=== PATIENT | female | born 1960 | race Caucasian/White ===

== ENCOUNTER → 2018-02-25 09:09 | Outpatient (CLI) | payer OTHER, SELFPAY ==
[2018-02-25 10:43] LABS: Alanine Aminotransferase 30 IU/L (9-52); Albumin Globulin Ratio 1.7 (1.0-2.8); Alkaline Phosphatase 65 U/L (38-126); Aspartate Aminotransferase 25 IU/L (14-36); BUN Creatinine Ratio 21.4 (6-22); Bilirubin Total 0.4 mg/dL (0.2-1.3); Blood Urea Nitrogen 15 mg/dL (7-17); Calcium 9.1 mg/dL (8.4-10.2); Carbon Dioxide 36 mmol/L (22-32); Chloride 101 mmol/L (98-107); Cholesterol 157 mg/dL (140-199); Estimated Glomerular Filt Rate > 60.0 mL/min (>60); Globulin 2.3 g/dL (1.7-4.1); Glucose 108 mg/dL (80-110); HDL Cholesterol 61 mg/dL (40-60); HEMOLYSIS < 15 (0-50); LDL Cholesterol Calculated 72 mg/dL (<100); Potassium 4.6 mmol/L (3.4-5.1); Sodium 143 mmol/L (137-145); Total Protein 6.3 g/dL (6.3-8.2); Triglycerides 119 mg/dL (35-150)
[2018-02-25 11:10] LABS: Thyroid Stimulating Hormone 4.14 uIU/mL (0.47-4.68)
[2018-03-01 15:13] LABS: Parathyroid Hormone Int 60 pg/mL (14-64)
== END ==
PROVIDERS: PCP Family Medicine; Visit Provider Physician Assistant
DX: E78.2 Mixed hyperlipidemia (principal); E03.9 Hypothyroidism, unspecified
CPT/HCPCS: 36415; 80053; 80061; 83970; 84443

== ENCOUNTER → 2018-04-05 14:06 | Outpatient (CLI) | payer OTHER, SELFPAY | PROVIDERS: PCP Physician Assistant; Visit Provider Internal Medicine Rheumatology | DX: M85.852 Other specified disorders of bone density and structure, left thigh (principal); Z78.0 Asymptomatic menopausal state; E07.9 Disorder of thyroid, unspecified; F17.200 Nicotine dependence, unspecified, uncomplicated; Z82.62 Family history of osteoporosis; Z90.722 Acquired absence of ovaries, bilateral | CPT/HCPCS: 77080 ==

== ENCOUNTER → 2018-04-07 12:55 | Outpatient (CLI) | payer OTHER, SELFPAY | PROVIDERS: PCP Physician Assistant; Visit Provider Physician Assistant | DX: R30.0 Dysuria (principal) | CPT/HCPCS: 87077; 87086; 87186 ==

== ENCOUNTER → 2018-05-25 12:58 | Outpatient (CLI) | payer OTHER, SELFPAY ==
[2018-05-25 13:01] LABS: Bacteria Urine None Seen; RBC Urine None Seen (0-5/HPF); WBC Urine None Seen (0-5/HPF)
[2018-05-25 13:37] LABS: Appearance Urine UA CLEAR; Bilirubin Urine UA NEGATIVE (NEGATIVE); Color Urine UA YELLOW; Glucose Urine UA NEGATIVE (Normal); Ketones Urine UA NEGATIVE (NEGATIVE); Leukocyte Esterase Urine UA TRACE (NEGATIVE); Nitrite Urine UA NEGATIVE (Negative); Occult Blood Urine UA TRACE-INTACT (Negative); Protein Urine UA NEGATIVE (Negative); Urobilinogen Urine UA 0.2 E.U./dL (0.2)
[2018-05-25 13:41] LABS: Amorphous Sediment Urine 1+; Culture Indicated Urine Cult Not Indicated
== END ==
PROVIDERS: PCP Physician Assistant; Visit Provider Physician Assistant
DX: N30.01 Acute cystitis with hematuria (principal)
CPT/HCPCS: 81001

== ENCOUNTER 2018-09-14 01:23 | Observation (INO) | payer OTHER, SELFPAY ==
[2018-09-14] VITALS (25 sets, daily range): BP systolic 83–150; BP diastolic 47–91; PULSE 85–130; RESP 12–24; TEMP 36.4–38.6; O2SAT 88–98; BMI 35.6
--- NOTE | 2018-09-14 01:42 | DI.RAD.S_ITS ---
PROCEDURE: XR CHEST 1V INDICATIONS: cough fever TECHNIQUE: One view of the chest was acquired. COMPARISON: None. FINDINGS: Surgical changes and devices: None. Lungs and pleura: Lungs are clear. No pleural effusions or pneumothorax. Mediastinum: Mediastinal contours appear normal. Heart size is normal. Bones and chest wall: No suspicious bony lesions. Overlying soft tissues appear unremarkable. IMPRESSION: No acute disease Dictated by: Nitin Sotomayor M.D. on 09/14/2018 at 7:53 Approved by: Nitin Sotomayor M.D. on 09/14/2018 at 7:54
[2018-09-14 01:45] LABS: Appearance Urine UA TURBID; Bilirubin Urine UA NEGATIVE (NEGATIVE); Color Urine UA Dark Yellow; Glucose Urine UA NEGATIVE (Negative); Ketones Urine UA TRACE (NEGATIVE); Leukocyte Esterase Urine UA 3+ (NEGATIVE); Nitrite Urine UA POSITIVE (Negative); Occult Blood Urine UA 3+ (Negative); Protein Urine UA 3+ (Negative); Urobilinogen Urine UA 0.2 E.U./dL (0.2); pH Urine UA 6.5 (4.5-8.0)
[2018-09-14 01:46] LABS: Bacteria Urine Many (>30); RBC Urine 30-100/HPF (0-5/HPF); Squamous Epithelial Cell Urine 0-1 /HPF; WBC Urine >100/HPF (0-5/HPF)
[2018-09-14 01:48] LABS: Culture Indicated Urine Specimen Cultured
--- NOTE | 2018-09-14 01:58 | ED_ITS ---
HPI - Fever General Chief Complaint: Fever Stated Complaint: HIGH FEVER Time Seen by Provider: 09/14/18 01:29 Source: patient Mode of arrival: ambulatory Limitations: no limitations History of Present Illness HPI Narrative: Patient is a 58-year-old female who presents with fever. she says today she had the shakes and just could not get warm today. She has had some urinary frequency and hematuria for the last 2 days. She has bilateral flank pain ongoing an remains unchanged. says she has known kidney stones and possibly bladder Stones as well. She denies any abdominal pain nausea vomiting. She is also a smoker and has had productive sputum of yellow ongoing for more than 1 month all. She denies any chest pain shortness of breath or heart palpitations. She says that she did take Bufferin, and Tylenol but nothing within the last 6 hr. She is currently afebrile. She says MD complaint: fever, malaise and weakness Onset (ago): day(s) (1) Associated symptoms: chills and rigors Related Data Home Medications Medication Instructions Recorded Confirmed oxycodone 15 mg PO Q6H #0 09/14/16 09/14/18 multivitamin [Multiple Vitamins] 1 tab PO QDAY #0 11/16/16 09/14/18 guaifenesin [Mucinex] 1,200 mg PO PRN PRN #0 01/27/17 09/14/18 prednisone 10 mg PO QDAY #0 01/27/17 09/14/18 tizanidine 4 mg tablet 4 mg PO .hs PRN tab 01/03/18 09/14/18 calcium carbonate [Calcium 600] 600 mg PO DAILY 09/14/18 09/14/18 cholecalciferol (vitamin D3) 400 unit PO DAILY 09/14/18 09/14/18 [Vitamin D3] coenzyme Q10 [Co Q-10] 300 mg PO DAILY 09/14/18 09/14/18 magnesium 400 mg PO DAILY 09/14/18 09/14/18 morphine 15 mg PO Q8H 09/14/18 09/14/18 Previous Rx's Medication Instructions Recorded escitalopram 20 mg tablet 20 mg PO QDAY #90 tab 02/24/18 ipratropium 20 mcg-albuterol 100 1 puff INHALATION QID #3 inh 08/17/18 mcg/actuation mist for inhalation levothyroxine 75 mcg tablet 75 mcg PO QDAY #90 tab 08/17/18 simvastatin 40 mg tablet 40 mg PO HS #90 tab 08/19/18 meloxicam 7.5 mg tablet 7.5 mg PO BID #180 tab 08/20/18 mirabegron ER 25 mg 25 mg PO HS #90 tab 08/20/18 tablet,extended release 24 hr Allergies Allergy/AdvReac Type Severity Reaction Status Date / Time epinephrine [EPINEPHRINE] Allergy Severe TROUBLE Verified 09/14/18 01:50 BREATHING - HAD ASTHMA A CHILD pregabalin [From [facility]] AdvReac Intermediate SOBBING & Verified 09/14/18 01:50 CONFUSION NOT A DRUG I EVER WANT TO TAKE AGAIN Review of Systems Review of Systems ROS Unobtainable: All systems reviewed & are unremarkable except as noted in HPI and below Constitutional Reports chills, Reports fever(s), Denies frequent falls, Denies headache(s) and Denies poor appetite Eyes Denies change in vision, Denies eye discharge, Denies irritation and Denies loss of vision ENT Ears, Nose, Mouth, and Throat: Denies headache(s) Cardiovascular Denies chest pain, Denies syncope, Reports rapid heart rate, Denies lightheadedness and Denies dyspnea Respiratory Denies change in phlegm color, Reports cough ( chronic), Denies excessive phlegm production, Denies dyspnea and Denies wheezing Gastrointestinal Gastrointestinal: Denies abdominal pain, Denies change in bowel habits, Denies diarrhea, Denies nausea and Denies vomiting Genitourinary Reports urinary urgency Musculoskeletal Denies back pain, Denies muscle weakness, Denies numbness and Denies tingling Integumentary/Breasts Denies pruritus, Denies erythema, Denies rash and Denies wounds Neurologic Denies confusion, Denies syncope, Denies frequent falls, Denies headache(s), Den ies loss of vision, Denies numbness and Denies tingling Psychiatric Denies anxiety, Denies confusion, Denies depression, Denies homicidal ideation and Denies suicidal ideation Allergic/Immunologic Denies wheezing [facility] Medical History Chronic back pain (Chronic 2001) Depression (Chronic Unknown) Fibromyalgia (Chronic 2013) Hyperlipemia (Chronic ~1994) Hypothyroidism (Chronic Unknown) Osteopenia (Chronic 2015) Rheumatoid arthritis (Chronic 01/2016) Urinary incontinence (Chronic 2013) Endometriosis (Resolved 1994) Surgical History Status post cholecystectomy Status post hysterectomy Status post laparoscopic supracervical hysterectomy Status post parathyroidectomy (09/02/16) Family History Grandmother Heart disease Mother Lung cancer Social History Smoking Status: Current every day smoker Tobacco: How many years used: 46 second hand exposure: No alcohol intake: former substance use type: does not use Family History Grandmother Heart disease Mother Lung cancer Social History household members: spouse Smoking Status: Current every day smoker Tobacco: How many years used: 46 second hand exposure: No alcohol intake: former substance use type: does not use Exam Initial Vital Signs Initial Vital Signs: Vital Signs Temperature 101.4 F H 09/14/18 01:25 Pulse Rate 130 H 09/14/18 01:25 Respiratory Rate 18 09/14/18 01:25 Blood Pressure 124/71 09/14/18 01:25 Pulse Oximetry 91 09/14/18 01:25 Const General: cooperative and healthy appearing Nutritional Appearance: average body habitus Orientation: alert, awake and oriented x3 HENMT Head: normal to inspection and normocephalic Face and sinus: normal facial exam Eyes General: appearance normal, both eyes and all related structures Neck Neck: normal visual inspection, full ROM and no meningeal signs Chest Chest: normal inspection of the chest and normal palpation of entire chest wall Resp Effort & Inspection: normal respiratory effort Auscultation: clear to auscultation bilaterally, no rales, no rhonchi and no wheezes Cardio Rate: tachycardic Rhythm: regular rhythm Heart Sounds: S1 normal and S2 normal GI Inspection: non-distended Palpation: soft, no hepatosplenomegaly, No guarding, No pulsatile mass and No tender Auscultation: normal bowel sounds Skin General: no rashes or lesions noted, No jaundice and No petechiae Neuro General: alert, oriented x3, gait normal and no focal motor deficits Speech: speech normal Scores qSOFA Altered Mental Status (GCS <15): No Respiratory rate greater than/equal to 22: No Systolic blood pressure less than or equal to 100: Yes qSOFA Total: 1 0-1 Not High Risk 1-3 High risk Course Orders Ordered: ED Orders 09/14/18 01:35 Urinalysis and Microscopic Stat Urine Culture Stat 09/14/18 01:42 XR chest 1V Stat 09/14/18 01:43 Influenza A and B by PCR Rapid Stat EKG-12 Lead Stat 09/14/18 02:05 Complete Blood Count AUTO DIFF Stat Comprehensive Metabolic Panel Stat Lactate (Lactic Acid) Stat Procalcitonin Stat 09/14/18 02:14 Blood Culture Stat 09/14/18 03:06 CT kidney ureter bladder (KUB) Stat 09/14/18 05:48 Education, smoking cessation ONGOING Acetaminophen (Tylenol) 650 mg PO Q6HR PRN PRN Reason: As Needed for Fever/Mild Pain Sodium Chloride (Normal Saline 0.9%) 1,000 mls @ 125 mls/hr IV CONT JEFFERSON Morphine Sulfate (Morphine) 2 mg IV Q4HR PRN PRN Reason: Pain, Severe (7-10) Last Admin: 09/14/18 05:54 Dose: 2 mg Ondansetron HCl (Zofran) 4 mg IV Q4HR PRN PRN Reason: Nausea And Vomiting Discontinued Medications Acetaminophen (Tylenol) 975 mg PO NOW ONE Stop: 09/14/18 01:43 Last Admin: 09/14/18 02:16 Dose: 975 mg Albuterol/Ipratropium (Duoneb) 3 ml INH NOW ONE Stop: 09/14/18 02:20 Last Admin: 09/14/18 02:27 Dose: 3 ml Sodium Chloride (Normal Saline 0.9%) 1,000 mls @ 1,000 mls/hr IV CONT JEFFERSON Last Infusion: 09/14/18 04:56 Dose: 0 mls/hr Infusion: 09/14/18 02:35 Dose: 400 mls/hr Admin: 09/14/18 02:16 Dose: 1,000 mls/hr Ceftriaxone Sodium/Dextrose (Rocephin) 1 gm in 50 mls @ 100 mls/hr IV NOW ONE Stop: 09/14/18 02:48 Last Admin: 09/14/18 02:36 Dose: Not Given Levofloxacin (Levaquin) 750 mg in 150 mls @ 100 mls/hr IV NOW ONE Stop: 09/14/18 03:50 Last Infusion: 09/14/18 04:27 Dose: 0 mls/hr Admin: 09/14/18 02:35 Dose: 100 mls/hr Sodium Chloride (Normal Saline 0.9%) 1,000 mls @ 1,000 mls/hr IV BOLUS ONE Stop: 09/14/18 03:49 Last Infusion: 09/14/18 04:57 Dose: 0 mls/hr Admin: 09/14/18 03:56 Dose: 1,000 mls/hr Sodium Chloride (Normal Saline 0.9%) 1,000 mls @ 1,000 mls/hr IV BOLUS ONE Stop: 09/14/18 06:13 Last Infusion: 09/14/18 05:25 Dose: 0 mls/hr Admin: 09/14/18 05:17 Dose: 1,000 mls/hr Influenza Virus Vaccine (Flu Vaccine) 0.5 ml IM .ONCE ONE Stop: 09/14/18 05:49 Ketorolac Tromethamine (Toradol) 30 mg IV NOW ONE Stop: 09/14/18 04:31 Last Admin: 09/14/18 04:31 Dose: 30 mg Nicotine (Nicoderm) 21 mg TOP NOW ONE Stop: 09/14/18 04:20 Last Admin: 09/14/18 04:52 Dose: 21 mg Ondansetron HCl (Zofran) 4 mg IV NOW ONE Stop: 09/14/18 04:14 Last Admin: 09/14/18 04:16 Dose: 4 mg Vital Signs - 8 hr 09/14/18 01:25 09/14/18 02:10 09/14/18 02:42 Temperature 101.4 F H Pulse Rate 130 H 117 H 111 H Respiratory Rate 18 20 19 Blood Pressure 124/71 Blood Pressure [Right Arm] 107/69 101/65 Pulse Oximetry 91 88 L 89 L 09/14/18 03:28 09/14/18 03:31 09/14/18 03:51 Temperature 100.2 F H Pulse Rate 108 H 102 H Respiratory Rate 16 16 Blood Pressure Blood Pressure [Right Arm] 102/60 83/58 L Pulse Oximetry 92 90 L 09/14/18 04:15 09/14/18 04:30 09/14/18 04:45 Temperature Pulse Rate 104 H 101 H Respiratory Rate 24 21 Blood Pressure Blood Pressure [Right Arm] 99/66 101/65 99/70 Pulse Oximetry 92 91 09/14/18 05:06 09/14/18 05:21 09/14/18 05:27 Temperature 98.4 F Pulse Rate 92 H 90 Respiratory Rate 14 12 Blood Pressure 99/75 Blood Pressure [Right Arm] 117/60 Pulse Oximetry 91 92 09/14/18 05:48 Temperature 98.8 F Pulse Rate 96 H Respiratory Rate 14 Blood Pressure 103/62 Blood Pressure [Right Arm] Pulse Oximetry 97 MDM - Fever Lab Data Attestation: I reviewed the patient's lab results. Result diagrams: 09/14/18 02:05 09/14/18 02:05 Lab Results 09/14/18 09/14/18 09/14/18 Range/Units 01:35 01:43 02:05 WBC 17.0 H (4.5-11.0) X10^3/uL RBC 5.04 (4.0-5.2) X10^6/uL Hgb 15.1 (12.0-16.0) g/dL Hct 45.2 (36-46) % MCV 89.7 (80-100) fL MCH 30.0 (26-34) PG MCHC 33.5 (30-36) % RDW 13.6 (11.6-14.8) % Plt Count 256 (150-400) X10^3/uL Neut % (Auto) 81.0 H (50-75) % Lymph % (Auto) 8.2 L (25-40) % [place] % (Auto) 10.0 (3-14) % Eos % (Auto) 0.4 L (2-4) % Baso % (Auto) 0.4 (0-2) % Neut # (Auto) 92587 H (5785-3631) /uL Lymph # (Auto) 1400 (4006-3073) /uL [place] # (Auto) 1700 H (0-900) /uL Eos # (Auto) 100 (0-450) /uL Baso # (Auto) 100 (0-100) /uL Sodium (137-145) mmol/L Potassium (3.4-5.1) mmol/L Chloride (98-107) mmol/L Carbon Dioxide (22-32) mmol/L BUN (7-17) mg/dL Creatinine (0.52-1.04) mg/dL Estimated GFR (>60) mL/min BUN/Creatinine Ratio (6-22) Glucose (80-110) mg/dL Lactate (0.7-2.1) mmol/L Calcium (8.4-10.2) mg/dL Total Bilirubin (0.2-1.3) mg/dL AST (14-36) IU/L ALT (9-52) IU/L Alkaline Phosphatase (38-126) U/L Total Protein (6.3-8.2) g/dL Albumin (3.5-5.0) g/dL Globulin (1.7-4.1) g/dL Albumin/Globulin Ratio (1.0-2.8) Procalcitonin (<0.5) ng/mL Urine Color Dark yellow Urine Appearance Turbid Urine pH 6.5 (4.5-8.0) Ur Specific [place] 1.010 (1.000-1.035) Urine Protein 3+ H (Negative) Urine Glucose (UA) Negative (Negative) g/dL Urine Ketones Trace H (NEGATIVE) Urine Occult Blood 3+ H (Negative) Urine Nitrate Positive H (Negative) Urine Bilirubin Negative (NEGATIVE) Urine Urobilinogen 0.2 (0.2) E.U./dL Ur Leukocyte Esterase 3+ H (NEGATIVE) Urine RBC 30-100/hpf H (0-5/HPF) Urine WBC >100/hpf H (0-5/HPF) Ur Squamous Epith Cells 0-1 /hpf Urine Bacteria Many (>30) H (None) Ur Culture Indicated? Specimen cultured Micro UA Comment . Influenza A & B (PCR) Negative (Negative) 09/14/18 09/14/18 09/14/18 Range/Units 02:05 02:05 02:05 WBC (4.5-11.0) X10^3/uL RBC (4.0-5.2) X10^6/uL Hgb (12.0-16.0) g/dL Hct (36-46) % MCV (80-100) fL MCH (26-34) PG MCHC (30-36) % RDW (11.6-14.8) % Plt Count (150-400) X10^3/uL Neut % (Auto) (50-75) % Lymph % (Auto) (25-40) % [place] % (Auto) (3-14) % Eos % (Auto) (2-4) % Baso % (Auto) (0-2) % Neut # (Auto) (4279-4893) /uL Lymph # (Auto) (6750-6739) /uL [place]ble # (Auto) (0-900) /uL Eos # (Auto) (0-450) /uL Baso # (Auto) (0-100) /uL Sodium 138 (137-145) mmol/L Potassium 3.5 (3.4-5.1) mmol/L Chloride 100 (98-107) mmol/L Carbon Dioxide 27 (22-32) mmol/L BUN 17 (7-17) mg/dL Creatinine 1.00 (0.52-1.04) mg/dL Estimated GFR 56.6 L (>60) mL/min BUN/Creatinine Ratio 17.0 (6-22) Glucose 140 H (80-110) mg/dL Lactate 1.4 (0.7-2.1) mmol/L Calcium 9.4 (8.4-10.2) mg/dL Total Bilirubin 0.5 (0.2-1.3) mg/dL AST 27 (14-36) IU/L ALT 38 (9-52) IU/L Alkaline Phosphatase 81 (38-126) U/L Total Protein 6.8 (6.3-8.2) g/dL Albumin 4.1 (3.5-5.0) g/dL Globulin 2.7 (1.7-4.1) g/dL Albumin/Globulin Ratio 1.5 (1.0-2.8) Procalcitonin 2.31 H (<0.5) ng/mL Urine Color Urine Appearance Urine pH (4.5-8.0) Ur Specific [place] (1.000-1.035) Urine Protein (Negative) Urine Glucose (UA) (Negative) g/dL Urine Ketones (NEGATIVE) Urine Occult Blood (Negative) Urine Nitrate (Negative) Urine Bilirubin (NEGATIVE) Urine Urobilinogen (0.2) E.U./dL Ur Leukocyte Esterase (NEGATIVE) Urine RBC (0-5/HPF) Urine WBC (0-5/HPF) Ur Squamous Epith Cells Urine Bacteria (None) Ur Culture Indicated? Micro UA Comment Influenza A & B (PCR) (Negative) Imaging Data CT scan - abdomen: Radiologist's impression: night shift manager report: Moderate left hydronephrosis is present. Multiple stones present in left ureter. There is a distal ureteral stone measuring 3 mm diameter approximately 3 cm above vesicoureteral junction. A 2 mm stone present in the ureter is immediately superior to this. There is a stone in the upper left ureter at the ureteropelvic junction, measuring 4 mm diameter. Additional small nonobstructing stones present within collecting systems of both kidneys. No obstructing stone is seen on the right. gastric lap band apparatus in place unremarkable. Chest x-ray: Attestation: I personally reviewed and interpreted this imaging study as follows: My impression: No acute cardiopulmonary process ECG Data Attestation: I personally reviewed and interpreted this ECG as follows: Prior ECG tracings: not available for review Interpretation: sinus tachycardia rate 119 year interval [address] changes or T-wave inversion MDM Narrative Medical decision making narrative: Patient's blood pressure was noted to decrease into the 80s. I went to evaluate patient she is complaining of right flank pain. She says the pain has gotten significantly worse more so than her regular pain. She states that she did take her home pain medications while in [facility] ED which included 15 mg of oxycodone and morphine sulfate. she states that she just took these medications Prior to me entering the room. Not sure that the medications have had a chance to be in effect, and her blood pressure is noted to be in the 80's. I discussed with patient that she should not be taking her own medications while in the ED unless given permission. blood pressure is rechecked multiple times and on different arms. Systolic does remain in the 80s and low 90s. Her heart rate has improved. She has only had 1 L of IV fluids. However suspect severe sepsis. Her lactic acid however is normal but she does have significant leukocytosis of 17 with UTI. She is also noted to have slightly low oxygen however she is a known smoker and not complaining of any shortness of breath or seeming to be in any significant respiratory distress. She is given deuneb which does seem to help. complaining of mostly right flank pain. [facility] closed [facility] [place] closed. [facility] boarding in ED but will put patient on list. Coordinator found a bed at [place]. Dr. Milton accepts patient, in patient. IV fluids. Discharge Plan Departure Patient Disposition: Admitted As Inpatient Clinical Impression: Pyelonephritis, Sepsis associated hypotension, Kidney stone on left side Discharge Date/Time: 09/14/18 05:27 Interventions: ED Discharge Assessment Last Done: 09/14/18 05:21 Admit Date/Time: 09/14/18 05:19 Admit Provider: Abundio Milton
[2018-09-14 02:11] LABS: Influenza A and B by PCR Rapid Negative (Negative)
[2018-09-14] MEDS: ACETAMINOPHEN 325 MG TABLET 975 MG PO (02:16)
[2018-09-14] MEDS: SODIUM CHLORIDE 0.9% 1,000 ML 1000 ML IV ×3 (02:16→05:17)
[2018-09-14 02:18] LABS: Add Manual Diff / Slide Review NO; Basophils Absolute Auto 100 /uL (0-100); Basophils Percent Auto 0.4 % (0-2); Eosinophils Absolute Auto 100 /uL (0-450); Eosinophils Percent Auto 0.4 % (2-4); Hematocrit 45.2 % (36-46); Hemoglobin 15.1 g/dL (12.0-16.0); Lymphocytes Absolute Auto 1400 /uL (1100-4500); Lymphocytes Percent Auto 8.2 % (25-40); Mean Corpuscular HGB Conc 33.5 % (30-36); Mean Corpuscular Volume 89.7 fL (80-100); Monocytes Absolute Auto 1700 /uL (0-900); Neutrophils Absolute Auto 13700 /uL (1500-7000); Platelet Count 256 X10^3/uL (150-400); Red Blood Cell Count 5.04 X10^6/uL (4.0-5.2); Red Cell Distribution Width 13.6 % (11.6-14.8)
[2018-09-14] MEDS: ALBUTEROL/IPRATROPIUM 3 ML AMPUL INH ×4 (02:27→21:12)
[2018-09-14 02:28] LABS: Alanine Aminotransferase 38 IU/L (9-52); Albumin 4.1 g/dL (3.5-5.0); Albumin Globulin Ratio 1.5 (1.0-2.8); Alkaline Phosphatase 81 U/L (38-126); Aspartate Aminotransferase 27 IU/L (14-36); Bilirubin Total 0.5 mg/dL (0.2-1.3); Blood Urea Nitrogen 17 mg/dL (7-17); Calcium 9.4 mg/dL (8.4-10.2); Carbon Dioxide 27 mmol/L (22-32); Chloride 100 mmol/L (98-107); Estimated Glomerular Filt Rate 56.6 mL/min (>60); Globulin 2.7 g/dL (1.7-4.1); Glucose 140 mg/dL (80-110); HEMOLYSIS < 15 (0-50); Potassium 3.5 mmol/L (3.4-5.1); Sodium 138 mmol/L (137-145); Total Protein 6.8 g/dL (6.3-8.2)
[2018-09-14 02:29] LABS: Lactate (Lactic Acid) 1.4 mmol/L (0.7-2.1)
[2018-09-14] MEDS: levoFLOXacin 750 MG/150 ML PIGGYBACK 100 MG IV (02:35)
[2018-09-14 02:45] LABS: Procalcitonin 2.31 ng/mL (<0.5)
--- NOTE | 2018-09-14 03:05 | PC.NURSE ---
Pt took own home pain medications, Dr. Lezama is aware.
--- NOTE | 2018-09-14 03:06 | DI.CT.S_ITS ---
PROCEDURE: CT KIDNEY URETER BLADDER (KUB) INDICATIONS: right flank pain TECHNIQUE: Noncontrast 5 mm thick sections acquired from the diaphragms to the symphysis. 5 mm thick coronal and sagittal reformats were then performed. For radiation dose reduction, the following was used: automated exposure control, adjustment of mA and/or kV according to patient size. COMPARISON: None. FINDINGS: Image quality: Excellent. Lung bases: Lung bases are clear. Heart size is normal. Urinary system: There is mild left perinephric stranding. Multiple bilateral renal calculi are seen measuring up to 2 mm on the left 1 mm the right. There is a 3 mm calculus in the proximal left ureter with associated mild ureterectasis, and mild left hydronephrosis. No other ureteral calculi seen. Bladder is partially collapsed. Mild asymmetric left renal enlargement Other solid organs: Liver is normal in size. Gallbladder surgically absent. Pancreas is normal in contours. Spleen is normal in size. No adrenal nodules. Peritoneum and bowel: Laparoscopic gastric banding. No free fluid or air. Colonic diverticulosis is seen without evidence of acute complication. No evidence of bowel obstruction. Rectum is grossly unremarkable Nodes and vessels: No retroperitoneal or mesenteric adenopathy by size criteria. Aorta and inferior vena cava are normal in caliber. Abdominal wall: No ventral hernias. Pelvis: No free pelvic fluid. No inguinal hernias or adenopathy. Bones: No suspicious bony lesions. No vertebral body compression fractures. Multilevel spondylosis IMPRESSION: Mildly to moderately obstructive 3 mm proximal left ureteral calculus. Adjacent perinephric stranding/inflammation. Additional bilateral sub-5 mm nephrolithiasis. Dictated by: Nitin oStomayor M.D. on 09/14/2018 at 7:45 Approved by: Nitin Sotomayor M.D. on 09/14/2018 at 7:50
[2018-09-14] MEDS: ONDANSETRON 4 MG/2 ML INJ IV (04:16)
[2018-09-14] MEDS: KETOROLAC 60 MG/2 ML VIAL 30 MG IV (04:31)
[2018-09-14] MEDS: NICOTINE 21 MG PATCH TOP (04:52)
[2018-09-14] MEDS: MORPHINE 2 MG/ML INJ IV (05:54)
[2018-09-14] MEDS: SODIUM CHLORIDE 0.9% 1,000 ML 125 ML IV ×3 (06:00→22:11)
--- NOTE | 2018-09-14 06:11 | PC.NURSE ---
Addendum entered by Kylie Draper R.N. 09/14/18 06:31: Dr. Milton called, Morphine order changed to 4mg q4h PRN Original Note: Patient arrived to unit at 0545 as AxOx3, VSS, tolerating room air. Patient very angry to give up her home meds to be locked away by coordinator. Patient states her pain is 10 out of 10 in her right flank area, after having received Toradol one hour earlier, along with apparently taking her own Oxycodone 15mg and Morphine 15mg in the ED. I gave her 2mg Morphine IVP and after 10 minutes patient has demanded stronger pain meds. Her 3rd fluid bolus is running right now. Telemetry on. Patient states her urine is bloody and malodorous but does not burn. Walks independently.
[2018-09-14] MEDS: MORPHINE 4 MG/ML INJ IV ×2 (06:38→09:41)
[2018-09-14] MEDS: ACETAMINOPHEN 325 MG TABLET 650 MG PO ×2 (07:47→19:35)
[2018-09-14] MEDS: ENOXAPARIN 40 MG/0.4 ML SYRINGE SUBCUT (09:52)
[2018-09-14] MEDS: LEVOTHYROXINE 75 MCG TABLET PO (09:52)
[2018-09-14] MEDS: ESCITALOPRAM 10 MG TABLET 20 MG PO (09:52)
[2018-09-14] MEDS: predniSONE 10 MG TABLET PO (09:52)
[2018-09-14] MEDS: HYDROMORPHONE 1 MG INJ IV ×2 (13:39→16:26)
[2018-09-14] MEDS: INFLUENZA VACCINE 0.5 ML SYRINGE IM (14:25)
[2018-09-14] MEDS: MORPHINE ER 15 MG TABLET PO ×2 (16:26→22:05)
[2018-09-14 17:56] LABS: Hematocrit 41.6 % (36-46); Hemoglobin 13.6 g/dL (12.0-16.0); Mean Corpuscular HGB Conc 32.6 % (30-36); Mean Corpuscular Hemoglobin 29.6 PG (26-34); Mean Corpuscular Volume 90.9 fL (80-100); Platelet Count 227 X10^3/uL (150-400); Red Blood Cell Count 4.58 X10^6/uL (4.0-5.2); Red Cell Distribution Width 13.8 % (11.6-14.8); White Blood Cell Count 18.5 X10^3/uL (4.5-11.0)
[2018-09-14 17:57] LABS: Add Manual Diff / Slide Review YES
[2018-09-14 18:11] LABS: Neutrophils Absolute Manual 17020 /uL (3000-5900); Total Cells Counted 100
[2018-09-14 18:12] LABS: Anisocytosis 1+
[2018-09-14 18:13] LABS: Blood Urea Nitrogen 18 mg/dL (7-17); Calcium 8.4 mg/dL (8.4-10.2); Carbon Dioxide 26 mmol/L (22-32); Chloride 106 mmol/L (98-107); Estimated Glomerular Filt Rate > 60.0 mL/min (>60); Glucose 124 mg/dL (80-110); HEMOLYSIS 27 (0-50); Sodium 139 mmol/L (137-145)
--- NOTE | 2018-09-14 18:30 | PM.HP.1 ---
History of Present Illness Date Patient Seen: 09/14/18 Chief complaint: HIGH FEVER Narrative: The patient is a 58-year-old female with a history of ureteral stones who was in her usual state of health until last weekend when she developed hematuria. A few days ago the patient fell like her skin was crawling. She noted having a fever. She had some associated nausea. Patient felt poorly. She presented to the emergency room for evaluation. In the emergency department the patient was found to have urinary tract infection which was positive. She also complained of flank pain. CT of the abdomen and pelvis revealed perinephric stranding. Patient was admitted to the hospital for inpatient treatment of acute pyelonephritis. Patient reports having a prior episode of pyelonephritis in April of this year. She has not seen a urologist yet about her kidney stones id she has questions regarding why she is having recurrent symptoms. Patient History Medical History Chronic back pain (Chronic 2001) Depression (Chronic Unknown) Fibromyalgia (Chronic 2013) Hyperlipemia (Chronic ~1994) Hypothyroidism (Chronic Unknown) Osteopenia (Chronic 2015) Rheumatoid arthritis (Chronic 01/2016) Urinary incontinence (Chronic 2013) Endometriosis (Resolved 1994) Surgical History Status post cholecystectomy Status post hysterectomy Status post laparoscopic supracervical hysterectomy Status post parathyroidectomy (09/02/16) Family History Grandmother Heart disease Mother Lung cancer Social History household members: spouse Smoking Status: Current every day smoker Tobacco: How many years used: 46 second hand exposure: No alcohol intake: former substance use type: does not use Family & Social History Family History Grandmother Heart disease Mother Lung cancer Social History: household members spouse Prior Living Arrangements House Safety & Behavioral: Feels Safe in Current Yes Environment Been Physically Hurt or No Threatened By a Person Suicidal Ideation Description None Suicide Plan Description No Plan Tobacco & Substance use: Tobacco type cigarettes Smoking Status Current every day smoker Smoking packs per day 1 alcohol intake former alcohol intake frequency 0-2 drinks per day Substance Use Type does not use Meds Home Medications Medication Instructions Recorded Confirmed Type oxycodone 15 mg PO Q6H #0 09/14/16 09/14/18 History multivitamin [Multiple Vitamins] 1 tab PO QDAY #0 11/16/16 09/14/18 History guaifenesin [Mucinex] 1,200 mg PO PRN PRN #0 01/27/17 09/14/18 History prednisone 10 mg PO QDAY #0 01/27/17 09/14/18 History tizanidine 4 mg tablet 4 mg PO .hs PRN tab 01/03/18 09/14/18 History escitalopram 20 mg tablet 20 mg PO QDAY #90 tab 02/24/18 09/14/18 Rx ipratropium 20 mcg-albuterol 100 1 puff INHALATION QID #3 inh 08/17/18 09/14/18 Rx mcg/actuation mist for inhalation levothyroxine 75 mcg tablet 75 mcg PO QDAY #90 tab 08/17/18 09/14/18 Rx simvastatin 40 mg tablet 40 mg PO HS #90 tab 08/19/18 09/14/18 Rx meloxicam 7.5 mg tablet 7.5 mg PO BID #180 tab 08/20/18 09/14/18 Rx mirabegron ER 25 mg 25 mg PO HS #90 tab 08/20/18 09/14/18 Rx tablet,extended release 24 hr calcium carbonate [Calcium 600] 600 mg PO DAILY 09/14/18 09/14/18 History cholecalciferol (vitamin D3) 400 unit PO DAILY 09/14/18 09/14/18 History [Vitamin D3] coenzyme Q10 [Co Q-10] 300 mg PO DAILY 09/14/18 09/14/18 History magnesium 400 mg PO DAILY 09/14/18 09/14/18 History morphine 15 mg PO Q8H 09/14/18 09/14/18 History Allergies Allergy/AdvReac Type Severity Reaction Status Date / Time epinephrine [EPINEPHRINE] Allergy Severe TROUBLE Verified 09/14/18 01:50 BREATHING - HAD ASTHMA A CHILD pregabalin [From LYRICA] AdvReac Intermediate SOBBING & Verified 09/14/18 01:50 CONFUSION NOT A DRUG I EVER WANT TO TAKE AGAIN Review of Systems Review of Systems All systems reviewed & are unremarkable except as noted in HPI and below Exam Vital Signs (past 8 hours): - 09/14/18 11:02 09/14/18 12:00 09/14/18 15:02 Temperature 98.7 F Pulse Rate 85 89 88 Respiratory Rate 18 16 18 Blood Pressure 104/60 Pulse Oximetry 93 94 95 09/14/18 16:23 Temperature 97.5 F L Pulse Rate 95 H Respiratory Rate 16 Blood Pressure 110/81 Pulse Oximetry 91 Fraction of Inspired Oxygen 21 Oxygen Delivery Method Room Air Oxygen Flow Rate 0 Narrative Exam Narrative: Ill appearing female HEENT: Normocephalic atraumatic extraocular muscles are intact oropharynx is clear neck is supple there is no adenopathy Lungs: Clear to auscultation Cardiac exam: Regular rate and rhythm normal S1-S2 Abdomen: Soft nontender nondistended right upper quadrant palpable mass corresponding to lap band no board-like rigidity or rebound tenderness Extremities: No edema Neuro exam: Nonfocal Skin exam: No lesion Psychiatric exam: Patient is awake alert and appropriate, hallucinations, no tics, Objective Labs Result Diagrams: 09/14/18 17:34 09/14/18 17:34 Labs: Laboratory Results - last 24 hr 09/14/18 09/14/18 09/14/18 01:35 01:43 02:05 WBC 17.0 H RBC 5.04 Hgb 15.1 Hct 45.2 MCV 89.7 MCH 30.0 MCHC 33.5 RDW 13.6 Plt Count 256 Neut % (Auto) 81.0 H Lymph % (Auto) 8.2 L [place] % (Auto) 10.0 Eos % (Auto) 0.4 L Baso % (Auto) 0.4 Neut # (Auto) 15893 H Lymph # (Auto) 1400 [place] # (Auto) 1700 H Eos # (Auto) 100 Baso # (Auto) 100 Total Counted Seg Neutrophils % Band Neutrophils % Lymphocytes % (Manual) Monocytes % (Manual) Neutrophils # (Manual) RBC Morphology Anisocytosis Sodium Potassium Chloride Carbon Dioxide BUN Creatinine Estimated GFR BUN/Creatinine Ratio Glucose Lactate Calcium Total Bilirubin AST ALT Alkaline Phosphatase Total Protein Albumin Globulin Albumin/Globulin Ratio Procalcitonin Urine Color Dark yellow Urine Appearance Turbid Urine pH 6.5 Ur Specific [place] 1.010 Urine Protein 3+ H Urine Glucose (UA) Negative Urine Ketones Trace H Urine Occult Blood 3+ H Urine Nitrate Positive H Urine Bilirubin Negative Urine Urobilinogen 0.2 Ur Leukocyte Esterase 3+ H Urine RBC 30-100/hpf H Urine WBC >100/hpf H Ur Squamous Epith Cells 0-1 /hpf Urine Bacteria Many (>30) H Ur Culture Indicated? Specimen cultured Micro UA Comment . Influenza A & B (PCR) Negative 09/14/18 09/14/18 09/14/18 02:05 02:05 02:05 WBC RBC Hgb Hct MCV MCH MCHC RDW Plt Count Neut % (Auto) Lymph % (Auto) [place] % (Auto) Eos % (Auto) Baso % (Auto) Neut # (Auto) Lymph # (Auto) [place] # (Auto) Eos # (Auto) Baso # (Auto) Total Counted Seg Neutrophils % Band Neutrophils % Lymphocytes % (Manual) Monocytes % (Manual) Neutrophils # (Manual) RBC Morphology Anisocytosis Sodium 138 Potassium 3.5 Chloride 100 Carbon Dioxide 27 BUN 17 Creatinine 1.00 Estimated GFR 56.6 L BUN/Creatinine Ratio 17.0 Glucose 140 H Lactate 1.4 Calcium 9.4 Total Bilirubin 0.5 AST 27 ALT 38 Alkaline Phosphatase 81 Total Protein 6.8 Albumin 4.1 Globulin 2.7 Albumin/Globulin Ratio 1.5 Procalcitonin 2.31 H Urine Color Urine Appearance Urine pH Ur Specific [place] Urine Protein Urine Glucose (UA) Urine Ketones Urine Occult Blood Urine Nitrate Urine Bilirubin Urine Urobilinogen Ur Leukocyte Esterase Urine RBC Urine WBC Ur Squamous Epith Cells Urine Bacteria Ur Culture Indicated? Micro UA Comment Influenza A & B (PCR) 09/14/18 09/14/18 17:34 17:34 WBC 18.5 H RBC 4.58 Hgb 13.6 Hct 41.6 MCV 90.9 MCH 29.6 MCHC 32.6 RDW 13.8 Plt Count 227 Neut % (Auto) Not Reportable Lymph % (Auto) Not Reportable [place] % (Auto) Not Reportable Eos % (Auto) Not Reportable Baso % (Auto) Not Reportable Neut # (Auto) Lymph # (Auto) Not Reportable [place] # (Auto) Not Reportable Eos # (Auto) Baso # (Auto) Not Reportable Total Counted 100 Seg Neutrophils % 85.0 H Band Neutrophils % 7.0 Lymphocytes % (Manual) 4.0 L Monocytes % (Manual) 4.0 Neutrophils # (Manual) 97033 H RBC Morphology See below Anisocytosis 1+ H Sodium 139 Potassium 5.0 D Chloride 106 Carbon Dioxide 26 BUN 18 H Creatinine 0.90 Estimated GFR > 60.0 BUN/Creatinine Ratio 20.0 Glucose 124 H Lactate Calcium 8.4 Total Bilirubin AST ALT Alkaline Phosphatase Total Protein Albumin Globulin Albumin/Globulin Ratio Procalcitonin Urine Color Urine Appearance Urine pH Ur Specific [place] Urine Protein Urine Glucose (UA) Urine Ketones Urine Occult Blood Urine Nitrate Urine Bilirubin Urine Urobilinogen Ur Leukocyte Esterase Urine RBC Urine WBC Ur Squamous Epith Cells Urine Bacteria Ur Culture Indicated? Micro UA Comment Influenza A & B (PCR) Assessment & Plan Assessment & Plan narrative: 1. 58-year-old female admitted to the hospital with sepsis secondary to urinary tract infection, present on admission 2. Acute pyelonephritis, present on admission 3. Fibromyalgia 4. Chronic pain 5. Chronic asthma 6. Hyperlipidemia Plan the patient will continue on IV hydration, will continue IV fluids, will await results of blood and urine cultures. Patient previously had E coli in April. Anticipate she will have that again. Will recommend outpatient urology follow-up given her 2nd urinary tract infection. She will be placed on DVT prophylaxis. Will continue her usual home medications as well. Patient is a full code and will note that her record accordingly.
[2018-09-14] MEDS: OXYCODONE IR 5 MG TABLET 15 MG PO (19:34)
--- NOTE | 2018-09-14 19:52 | PC.NURSE ---
1930 - Pt reports feeling febrile, My skin hurts. Temp 98.5 oral, Pt states that she normally runs about 97. APAP and percolone given. Pt reports right flank pain as improved, however generalized ache r/t fibromyalgia persist. Reinforced safety and call light use. Call light in reach.
[2018-09-14] MEDS: DOCUSATE 100 MG CAPSULE PO (22:07)
[2018-09-14] MEDS: levoFLOXacin 500 MG/100 ML PIGGYBACK 100 MG IV (22:07)
[2018-09-14] MEDS: SIMVASTATIN 40 MG TABLET PO (22:07)
[2018-09-14] MEDS: PHENAZOPYRIDINE 100 MG TABLET PO (22:56)
--- NOTE | 2018-09-14 22:58 | PC.NURSE ---
2130 - Pt c/o burning and urgency with urination. WET RO[employer]ER notified. Orders obtained. Pt using BSC. Reinforced safety and call light use. Call light in reach.
[2018-09-15] VITALS (7 sets, daily range): BP systolic 131–138; BP diastolic 65–75; PULSE 101–111; RESP 16–18; TEMP 36.5–38.1; O2SAT 89–93
[2018-09-15] MEDS: OXYCODONE IR 5 MG TABLET 15 MG PO ×3 (00:29→10:52)
[2018-09-15] MEDS: ACETAMINOPHEN 325 MG TABLET 650 MG PO (00:31)
[2018-09-15] MEDS: NICOTINE 21 MG PATCH TOP (01:04)
[2018-09-15] MEDS: MORPHINE ER 15 MG TABLET PO (05:59)
[2018-09-15] MEDS: LEVOTHYROXINE 75 MCG TABLET PO (06:16)
[2018-09-15 08:29] LABS: Add Manual Diff / Slide Review NO; Basophils Absolute Auto 100 /uL (0-100); Basophils Percent Auto 0.9 % (0-2); Eosinophils Absolute Auto 100 /uL (0-450); Eosinophils Percent Auto 0.4 % (2-4); Hematocrit 37.3 % (36-46); Hemoglobin 12.2 g/dL (12.0-16.0); Lymphocytes Absolute Auto 1300 /uL (1100-4500); Lymphocytes Percent Auto 9.4 % (25-40); Mean Corpuscular HGB Conc 32.8 % (30-36); Mean Corpuscular Hemoglobin 29.5 PG (26-34); Mean Corpuscular Volume 90.2 fL (80-100); Monocytes Absolute Auto 1300 /uL (0-900); Monocytes Percent Auto 9.2 % (3-14); Neutrophils Absolute Auto 11300 /uL (1500-7000); Neutrophils Percent Auto 80.1 % (50-75); Platelet Count 213 X10^3/uL (150-400); Red Blood Cell Count 4.14 X10^6/uL (4.0-5.2); Red Cell Distribution Width 13.7 % (11.6-14.8); White Blood Cell Count 14.1 X10^3/uL (4.5-11.0)
[2018-09-15] MEDS: ENOXAPARIN 40 MG/0.4 ML SYRINGE SUBCUT (08:46)
[2018-09-15] MEDS: ESCITALOPRAM 10 MG TABLET 20 MG PO (08:46)
[2018-09-15] MEDS: PHENAZOPYRIDINE 100 MG TABLET PO (08:46)
[2018-09-15] MEDS: predniSONE 10 MG TABLET PO (08:46)
[2018-09-15] MEDS: DOCUSATE 100 MG CAPSULE PO (08:47)
[2018-09-15] MEDS: ALBUTEROL/IPRATROPIUM 3 ML AMPUL INH (09:43)
--- NOTE | 2018-09-15 11:58 | P.DS_ITS ---
History of Present Illness Chief complaint: HIGH FEVER Narrative: The patient is a 58-year-old female with a history of ureteral stones who was in her usual state of health until last weekend when she developed hematuria. A few days ago the patient fell like her skin was crawling. She noted having a fever. She had some associated nausea. Patient felt poorly. She presented to the emergency room for evaluation. In the emergency department the patient was found to have urinary tract infection which was positive. She also complained of flank pain. CT of the abdomen and pelvis revealed perinephric stranding. Patient was admitted to the hospital for inpatient treatment of acute pyelonephritis. Patient reports having a prior episode of pyelonephritis in April of this year. She has not seen a urologist yet about her kidney stones id she has questions regarding why she is having recurrent symptoms. Discharge Providers Date of admission: 09/14/18 05:19 Primary care physician: Elli Craig PA-C Discharge provider: Marizol Chaves MD Discharge Date: 09/15/18 Summary Discharge Diagnosis: Acute pyelonephritis, present on admission Acute urinary tract infection secondary to E coli Fibromyalgia Hyperlipidemia Hospital Course: Patient was admitted to the hospital for high fever hematuria and flank pain. Urine culture and blood cultures were obtained. Blood cultures are negative to date. Urine cultures are positive for E coli. The patient had a CT of the abdomen and pelvis which did confirm perinephric stranding around the left kidney. In addition she has nephrolithiasis which is old. The patient had improvement in her symptomatology. She was able to tolerate oral intake. She had no further hematuria. Patient had some frequent urination which improved with Pyridium. She is requesting to discharge home. In addition the patient will be referred to [facility] outpatient [facility] for further evaluation. The time of this dictation she has no acute distress. She is deemed appropriate for discharge and discharged home. Status at Discharge Functional status at discharge: independent ambulation Overall status at discharge: patient is back to baseline Time Spent with Patient Less than 30 minutes Exam Vital Signs (past 8 hours): - 09/15/18 06:02 09/15/18 08:00 09/15/18 10:19 Temperature 99.7 F H 99.3 F Pulse Rate 108 H 101 H Respiratory Rate 18 18 Blood Pressure 138/65 131/75 Pulse Oximetry 93 89 L 92 Fraction of Inspired Oxygen 21 Oxygen Delivery Method Room Air Oxygen Flow Rate 0 Narrative Exam Narrative: Pleasant female resting comfortably in no acute distress Lungs: Clear to auscultation Cardiac exam: Regular rate and rhythm normal S1-S2 Abdomen soft non Objective Labs Result Diagrams: 09/15/18 08:15 09/14/18 17:34 Labs: Laboratory Results - last 24 hr 09/14/18 09/14/18 09/15/18 17:34 17:34 08:15 WBC 18.5 H 14.1 H RBC 4.58 4.14 Hgb 13.6 12.2 Hct 41.6 37.3 MCV 90.9 90.2 MCH 29.6 29.5 MCHC 32.6 32.8 RDW 13.8 13.7 Plt Count 227 213 Neut % (Auto) Not Reportable 80.1 H Lymph % (Auto) Not Reportable 9.4 L [place] % (Auto) Not Reportable 9.2 Eos % (Auto) Not Reportable 0.4 L Baso % (Auto) Not Reportable 0.9 Neut # (Auto) 28998 H Lymph # (Auto) Not Reportable 1300 [place] # (Auto) Not Reportable 1300 H Eos # (Auto) 100 Baso # (Auto) Not Reportable 100 Total Counted 100 Seg Neutrophils % 85.0 H Band Neutrophils % 7.0 Lymphocytes % (Manual) 4.0 L Monocytes % (Manual) 4.0 Neutrophils # (Manual) 01695 H RBC Morphology See below Anisocytosis 1+ H Sodium 139 Potassium 5.0 D Chloride 106 Carbon Dioxide 26 BUN 18 H Creatinine 0.90 Estimated GFR > 60.0 BUN/Creatinine Ratio 20.0 Glucose 124 H Calcium 8.4 Discharge Plan Discharge Plan Patient Disposition: Home Discharge comment: O patient follow up with Urology. The patient will be given a referral to the [facility] Discharge Med Rec/Prescriptions Prescriptions: New phenazopyridine 100 mg Tablet 100 mg PO TID 3 Days Qty: 9 RF: 0 levofloxacin 500 mg tablet 500 mg PO DAILY Qty: 14 RF: 0 Continued tizanidine [Zanaflex] 4 mg tablet 4 mg PO .hs PRN (Reason: muscle spasticity) RF: 0 oxycodone 15 MG tablet 15 mg PO Q6H Qty: 0 RF: 0 multivitamin [Multiple Vitamins] 1 EACH tablet 1 tab PO QDAY Qty: 0 RF: 0 guaifenesin [Mucinex] 1,200 MG tablet extended release 12hr 1,200 mg PO PRN PRN (Reason: Congestion) Qty: 0 RF: 0 prednisone 5 MG tablet 10 mg PO QDAY Qty: 0 RF: 0 escitalopram oxalate 20 mg tablet 20 mg PO QDAY Qty: 90 RF: 3 levothyroxine [Synthroid] 75 mcg tablet 75 mcg PO QDAY Qty: 90 RF: 1 ipratropium-albuterol [Combivent Respimat] 20-100 mcg/actuation mist 1 puff INHALATION QID Qty: 3 RF: 1 simvastatin 40 mg tablet 40 mg PO HS Qty: 90 RF: 2 meloxicam [Mobic] 7.5 mg tablet 7.5 mg PO BID Qty: 180 RF: 1 mirabegron [Myrbetriq] 25 mg tablet extended release 24 hr 25 mg PO HS Qty: 90 RF: 3 Co Q-10 300 mg Capsule 300 mg PO DAILY RF: 0 morphine 15 mg Tablet Extended Release 15 mg PO Q8H RF: 0 cholecalciferol (vitamin D3) [Vitamin D3] 400 unit Tablet 400 unit PO DAILY RF: 0 magnesium 200 mg Tablet 400 mg PO DAILY RF: 0 Discontinued calcium carbonate [Calcium 600] 600 mg calcium (1,500 mg) Tablet 600 mg PO DAILY RF: 0 Follow up/Referrals: Elli Craig PA-C [Primary Care Provider] - Provider Discharge Instructions Diet: Low-cholesterol Activity: aS tolerated Visit Report/Discharge Packet Instructions: Kidney Stones -- Adult, Kidney Infection Visit Report Forms: Stroke Signs & Symptoms Discharge Data Primary Care Provider: Elli Craig Attending Provider: Abundio Milton Admit Date/Time: 09/14/18 05:19 Discharges patient from system. Discharge Date/Time: 09/15/18 13:30
--- NOTE | 2018-09-15 13:58 | PC.NURSE ---
Pt discharged at 1330, home medication given to pt. Pt did not pass any visible kidney stones while voiding.
== END 2018-09-15 13:30 | disposition home or self-care (01) ==
LOC: ED 05:10 → AC 06:56
PROVIDERS: Internal Medicine; Admitting Provider Internal Medicine; Emergency Provider Emergency Medicine; PCP Physician Assistant; Visit Provider Internal Medicine
DX: A41.9 Sepsis, unspecified organism (principal); N39.0 Urinary tract infection, site not specified; N10 Acute pyelonephritis; R50.9 Fever, unspecified; F17.210 Nicotine dependence, cigarettes, uncomplicated; F32.9 Major depressive disorder, single episode, unspecified; M79.7 Fibromyalgia; E78.5 Hyperlipidemia, unspecified; E03.9 Hypothyroidism, unspecified; M85.80 Other specified disorders of bone density and structure, unspecified site; M06.9 Rheumatoid arthritis, unspecified; Z23 Encounter for immunization; J45.909 Unspecified asthma, uncomplicated; E86.0 Dehydration
CPT/HCPCS: 36415; 36591; 71045; 74176; 80048; 80053; 81001; 83605; 84145; 85025; 87040; 87077; 87086; 87186; 87400; 90471; 90656; 93005; 94640; 94760; 96365; 96366; 96375; 99285; G0378; J1170; J1650; J1885; J1956; J2270; J2405; Q2038

== ENCOUNTER → 2018-11-30 12:30 | Outpatient (CLI) | payer OTHER, SELFPAY ==
[2018-11-29 13:29] VITALS: BMI 35.6
== END ==
PROVIDERS: PCP Physician Assistant; Visit Provider Physician Assistant
DX: R10.9 Unspecified abdominal pain (principal); R35.0 Frequency of micturition; R10.11 Right upper quadrant pain
CPT/HCPCS: 87086

== ENCOUNTER → 2018-12-01 16:26 | Outpatient (CLI) | payer OTHER, SELFPAY ==
[2018-11-29 13:29] VITALS: BMI 35.6
[2018-12-01 17:14] LABS: Add Manual Diff / Slide Review NO; Basophils Absolute Auto 100 /uL (0-100); Basophils Percent Auto 0.6 % (0-2); Eosinophils Absolute Auto 0 /uL (0-450); Eosinophils Percent Auto 0.4 % (2-4); Hemoglobin 15.8 g/dL (12.0-16.0); Lymphocytes Absolute Auto 2200 /uL (1100-4500); Lymphocytes Percent Auto 19.4 % (25-40); Mean Corpuscular HGB Conc 32.2 % (30-36); Mean Corpuscular Hemoglobin 28.9 PG (26-34); Mean Corpuscular Volume 89.9 fL (80-100); Monocytes Absolute Auto 800 /uL (0-900); Monocytes Percent Auto 6.6 % (3-14); Neutrophils Absolute Auto 8300 /uL (1500-7000); Platelet Count 248 X10^3/uL (150-400); Red Blood Cell Count 5.45 X10^6/uL (4.0-5.2); Red Cell Distribution Width 15.1 % (11.6-14.8); White Blood Cell Count 11.4 X10^3/uL (4.5-11.0)
[2018-12-01 17:41] LABS: BUN Creatinine Ratio 24.3 (6-22); Blood Urea Nitrogen 17 mg/dL (7-17); Calcium 9.3 mg/dL (8.4-10.2); Carbon Dioxide 31 mmol/L (22-32); Chloride 100 mmol/L (98-107); Estimated Glomerular Filt Rate > 60.0 mL/min (>60); Glucose 110 mg/dL (80-110); HEMOLYSIS < 15 (0-50); Potassium 4.9 mmol/L (3.4-5.1); Sodium 139 mmol/L (137-145)
== END ==
PROVIDERS: PCP Physician Assistant; Visit Provider Physician Assistant
DX: R10.11 Right upper quadrant pain (principal); R10.9 Unspecified abdominal pain
CPT/HCPCS: 36415; 80048; 85025

== ENCOUNTER → 2018-12-14 12:43 | Outpatient (CLI) | payer OTHER, SELFPAY ==
[2018-11-29 13:29] VITALS: BMI 35.6
== END ==
PROVIDERS: PCP Physician Assistant; Visit Provider Physician Assistant
DX: R10.11 Right upper quadrant pain (principal); Z98.84 Bariatric surgery status; Z53.9 Procedure and treatment not carried out, unspecified reason

== ENCOUNTER → 2019-01-12 16:02 | Outpatient (CLI) | payer OTHER, SELFPAY ==
[2018-11-29 13:29] VITALS: BMI 35.6
[2019-01-12 16:04] LABS: Bacteria Urine None Seen
[2019-01-12 16:14] LABS: Appearance Urine UA CLEAR; Bilirubin Urine UA NEGATIVE (NEGATIVE); Color Urine UA YELLOW; Glucose Urine UA NEGATIVE (Negative); Ketones Urine UA NEGATIVE (NEGATIVE); Leukocyte Esterase Urine UA NEGATIVE (NEGATIVE); Nitrite Urine UA NEGATIVE (Negative); Occult Blood Urine UA TRACE-INTACT (Negative); Protein Urine UA NEGATIVE (Negative); Urobilinogen Urine UA 0.2 E.U./dL (0.2); pH Urine UA 7.5 (4.5-8.0)
[2019-01-12 16:23] LABS: Culture Indicated Urine Cult Not Indicated; RBC Urine 1-5/HPF (0-5/HPF); Squamous Epithelial Cell Urine 0-1 /HPF (0-5/HPF); WBC Urine 0-1/HPF (0-5/HPF)
== END ==
PROVIDERS: PCP Physician Assistant; Visit Provider Physician Assistant
DX: R10.9 Unspecified abdominal pain (principal); Z87.442 Personal history of urinary calculi
CPT/HCPCS: 81001

== ENCOUNTER → 2019-02-23 09:30 | Outpatient (CLI) | payer OTHER, SELFPAY ==
[2018-11-29 13:29] VITALS: BMI 35.6
[2019-02-23 10:20] LABS: Add Manual Diff / Slide Review NO; Basophils Absolute Auto 100 /uL (0-100); Basophils Percent Auto 0.6 % (0-2); Eosinophils Absolute Auto 300 /uL (0-450); Hemoglobin 16.1 g/dL (12.0-16.0); Lymphocytes Absolute Auto 2500 /uL (1100-4500); Lymphocytes Percent Auto 19.9 % (25-40); Mean Corpuscular HGB Conc 32.9 % (30-36); Mean Corpuscular Hemoglobin 29.3 PG (26-34); Mean Corpuscular Volume 89.1 fL (80-100); Monocytes Absolute Auto 1100 /uL (0-900); Monocytes Percent Auto 8.9 % (3-14); Neutrophils Absolute Auto 8700 /uL (1500-7000); Neutrophils Percent Auto 68.6 % (50-75); Platelet Count 247 X10^3/uL (150-400); Red Cell Distribution Width 14.8 % (11.6-14.8); White Blood Cell Count 12.7 X10^3/uL (4.5-11.0)
[2019-02-23 10:32] LABS: Alanine Aminotransferase 16 IU/L (9-52); Albumin 4.2 g/dL (3.5-5.0); Albumin Globulin Ratio 1.7 (1.0-2.8); Alkaline Phosphatase 100 U/L (38-126); Aspartate Aminotransferase 23 IU/L (14-36); Bilirubin Total 0.3 mg/dL (0.2-1.3); Blood Urea Nitrogen 15 mg/dL (7-17); Calcium 9.3 mg/dL (8.4-10.2); Carbon Dioxide 31 mmol/L (22-32); Chloride 101 mmol/L (98-107); Cholesterol 178 mg/dL (140-199); Estimated Glomerular Filt Rate > 60.0 mL/min (>60); Globulin 2.5 g/dL (1.7-4.1); Glucose 164 mg/dL (80-110); HDL Cholesterol 74 mg/dL (40-60); HEMOLYSIS 19 (0-50); LDL Cholesterol Calculated 58 mg/dL (<100); Potassium 4.7 mmol/L (3.4-5.1); Sodium 139 mmol/L (137-145); Total Protein 6.7 g/dL (6.3-8.2); Triglycerides 229 mg/dL (35-150)
[2019-02-23 11:03] LABS: Thyroid Stimulating Hormone 1.79 uIU/mL (0.47-4.68)
== END ==
PROVIDERS: PCP Physician Assistant; Visit Provider Physician Assistant
DX: E03.9 Hypothyroidism, unspecified (principal); E78.2 Mixed hyperlipidemia; R79.89 Other specified abnormal findings of blood chemistry; R73.01 Impaired fasting glucose; R31.9 Hematuria, unspecified
CPT/HCPCS: 36415; 80053; 80061; 83036; 84443; 85025; 87086

== ENCOUNTER → 2019-02-27 12:35 | Outpatient (CLI) | payer OTHER, SELFPAY ==
[2018-11-29 13:29] VITALS: BMI 35.6
--- NOTE | 2019-02-27 12:37 | DI.CT.S_ITS ---
PROCEDURE: CT ABDOMEN PELVIS W CON INDICATIONS: Low pelvic/back pain pressure; vaginal bleeding TECHNIQUE: After the administration of oral and intravenous contrast, 5 mm thick sections acquired from the diaphragms to the symphysis. 5 mm thick coronal and sagittal reformats were performed. For radiation dose reduction, the following was used: automated exposure control, adjustment of mA and/or kV according to patient size. COMPARISON: None. FINDINGS: Image quality: Excellent. ABDOMEN: Lung bases: Lung bases are clear. No effusion. Heart size is normal. Solid organs: Liver is normal in size and enhancement. Punctate hyperdensity at the inferior right lobe is unchanged most likely a cyst. Gallbladder is surgically absent.. Mild prominence of the extra hepatic and intrahepatic bile ducts. CBD measures 1.5 cm, (4/26), previously 1.6 cm. The pancreatic duct is at the upper limits of normal. Pancreas enhances normally. Spleen is normal in size and enhancement. No adrenal nodules. Calculus in the proximal left ureter measuring 5 mm, (4/33), not significant changed in size or location compared to 09/14/2018. Subtle left proximal ureteral enhancement. No significant hydronephrosis. Additional small amount of shunting calculi in both kidneys. Decreased stranding stranding left kidney. Kidneys are normal in size and symmetric in enhancement. Subcentimeter cortical hyperdensity in the left mid kidney which is too small to further characterize. No solid mass. Peritoneum and bowel: Moderate sigmoid colon diverticulosis. No acute inflammatory change to suggest acute diverticulitis. Appendix is normal in caliber. No bowel obstruction. Gastric lap band. No free fluid or air. Nodes and vessels: No retroperitoneal or mesenteric adenopathy. Aorta and inferior vena cava are normal in caliber. Miscellaneous: No ventral hernias. PELVIS: Genitourinary: Bladder wall thickness is normal. No bladder calculus. Uterus is atrophic. Miscellaneous: No inguinal hernias or adenopathy. Bones: No suspicious bony lesions. Moderate DDD. No vertebral body compression fractures. IMPRESSION: 1. Obstructing calculus in the proximal left ureter is unchanged in position. There is subtle ureteral enhancement and no significant left kidney hydronephrosis or delayed nephrogram. 2. Several nonobstructing kidney stones bilaterally. 3. Moderate diverticulosis without diverticulitis. Dictated by: Ed Torres M.D. on 02/27/2019 at 14:58 Approved by: Ed Torres M.D. on 02/27/2019 at 15:10
== END ==
PROVIDERS: PCP Physician Assistant; Visit Provider Physician Assistant
DX: M54.5 Low back pain (principal); N93.9 Abnormal uterine and vaginal bleeding, unspecified; R10.2 Pelvic and perineal pain; Z86.010 Personal history of colon polyps; Z90.710 Acquired absence of both cervix and uterus; N20.2 Calculus of kidney with calculus of ureter; K57.90 Diverticulosis of intestine, part unspecified, without perforation or abscess without bleeding
CPT/HCPCS: 74177; Q9967

== ENCOUNTER → 2019-03-14 17:44 | Outpatient (CLI) | payer OTHER, SELFPAY ==
[2018-11-29 13:29] VITALS: BMI 35.6
--- NOTE | 2019-03-14 17:49 | DI.MRI.S_ITS ---
PROCEDURE: MR CERVICAL SPINE WO CON INDICATIONS: Neck pain w/tingling numbness L arm hand TECHNIQUE: Noncontrast sagittal T1 spin echo and T2 fast spin echo, sagittal STIR, foraminal oblique sagittal T2 fast spin echo, and axial gradient echo or T2 fast spin echo through the cervical spine. COMPARISON: None. FINDINGS: Image quality: Excellent. Alignment and Curvature: Reversal of the normal cervical lordosis. Grade 1 anterolisthesis of C3 on C4 and C4 on C5. Grade 1 retrolisthesis of C6 on C7 Bone Marrow: Multilevel degenerative endplate sclerosis and spurring. Diffuse facet arthropathy. Spinal Cord: Visualized spinal cord has normal size and signal. No cerebellar tonsillar herniation. Paraspinous Soft Tissues: No paravertebral masses. Prevertebral soft tissues are normal in thickness. C2-C3: No canal stenosis. No left foraminal narrowing. Mild right foraminal stenosis C3-C4: No canal stenosis. Severe left foraminal stenosis with nerve root compression. Severe right foraminal narrowing also with nerve root compression C4-C5: Mild canal narrowing. Severe right foraminal stenosis or nerve root compression mild left foraminal narrowing. C5-C6: Mild central canal narrowing. Moderate right foraminal stenosis with nerve root compression. Severe left foraminal stenosis with nerve root compression C6-C7: Mild central canal narrowing. Mild to moderate right foraminal narrowing. Severe left foraminal stenosis with nerve root compression C7-T1: No canal stenosis. No definite foraminal narrowing IMPRESSION: Multilevel cervical spondylosis and facet arthropathy with reversal of the normal lordotic curvature as above. No high-grade canal stenosis. Severe diffuse bilateral foraminal stenoses as detailed above by spinal level. Dictated by: Nitin Sotomayor M.D. on 03/15/2019 at 10:17 Approved by: Nitin Sotomayor M.D. on 03/15/2019 at 10:22
== END ==
PROVIDERS: PCP Physician Assistant; Visit Provider Physician Assistant
DX: M54.2 Cervicalgia (principal); M47.22 Other spondylosis with radiculopathy, cervical region; M48.02 Spinal stenosis, cervical region; R20.2 Paresthesia of skin; R20.0 Anesthesia of skin
CPT/HCPCS: 72141

== ENCOUNTER → 2019-06-05 10:11 | Outpatient (CLI) | payer OTHER, SELFPAY ==
[2018-11-29 13:29] VITALS: BMI 35.6
[2019-06-05 12:02] LABS: Add Manual Diff / Slide Review NO; Basophils Absolute Auto 0 /uL (0-100); Basophils Percent Auto 0.6 % (0-2); Eosinophils Absolute Auto 300 /uL (0-450); Eosinophils Percent Auto 4.5 % (2-4); Hematocrit 48.9 % (36-46); Hemoglobin 16.3 g/dL (12.0-16.0); Lymphocytes Absolute Auto 2400 /uL (1100-4500); Lymphocytes Percent Auto 32.4 % (25-40); Mean Corpuscular HGB Conc 33.4 % (30-36); Mean Corpuscular Hemoglobin 29.9 PG (26-34); Mean Corpuscular Volume 89.4 fL (80-100); Monocytes Absolute Auto 700 /uL (0-900); Monocytes Percent Auto 9.6 % (3-14); Neutrophils Absolute Auto 3900 /uL (1500-7000); Neutrophils Percent Auto 52.9 % (50-75); Platelet Count 226 X10^3/uL (150-400); Red Blood Cell Count 5.47 X10^6/uL (4.0-5.2); Red Cell Distribution Width 14.3 % (11.6-14.8); White Blood Cell Count 7.3 X10^3/uL (4.5-11.0)
[2019-06-05 12:32] LABS: Alanine Aminotransferase 23 IU/L (<35); Albumin 4.2 g/dL (3.5-5.0); Albumin Globulin Ratio 1.7 (1.0-2.8); Alkaline Phosphatase 91 U/L (38-126); Aspartate Aminotransferase 30 IU/L (14-36); Bilirubin Total 0.5 mg/dL (0.2-1.3); Blood Urea Nitrogen 10 mg/dL (7-17); Calcium 9.5 mg/dL (8.4-10.2); Carbon Dioxide 33 mmol/L (22-32); Chloride 101 mmol/L (98-107); Cholesterol 164 mg/dL (140-199); Estimated Glomerular Filt Rate > 60.0 mL/min (>60); Globulin 2.5 g/dL (1.7-4.1); Glucose 132 mg/dL (80-110); HDL Cholesterol 55 mg/dL (40-60); HEMOLYSIS < 15 (0-50); LDL Cholesterol Calculated 83 mg/dL (<100); Potassium 4.1 mmol/L (3.4-5.1); Sodium 141 mmol/L (137-145); Total Protein 6.7 g/dL (6.3-8.2); Triglycerides 130 mg/dL (35-150)
[2019-06-05 12:34] LABS: Hemoglobin A1C% w Est Avg Glu 6.3 % (4.0-6.0)
[2019-06-05 12:57] LABS: Thyroid Stimulating Hormone 1.03 uIU/mL (0.47-4.68)
== END ==
PROVIDERS: PCP Physician Assistant; Visit Provider Physician Assistant
DX: E03.9 Hypothyroidism, unspecified (principal); E11.9 Type 2 diabetes mellitus without complications; E78.2 Mixed hyperlipidemia; R79.89 Other specified abnormal findings of blood chemistry; Z79.52 Long term (current) use of systemic steroids
CPT/HCPCS: 36415; 80053; 80061; 83036; 84443; 85025

== ENCOUNTER → 2019-07-03 14:54 | Outpatient (CLI) | payer OTHER, SELFPAY ==
[2018-11-29 13:29] VITALS: BMI 35.6
--- NOTE | 2019-07-03 14:58 | DI.RAD.S_ITS ---
PROCEDURE: XR SHOULDER LT MIN 2V INDICATIONS: Bilateral shoulder pain TECHNIQUE: 3 views of the shoulder were acquired. COMPARISON: None. FINDINGS: Bones: No fractures or dislocations. No suspicious bony lesions. Visualized ribs appear intact. Moderate a.c. joint osteoarthritis. Soft tissues: No suspicious soft tissue calcifications. IMPRESSION: Moderate a.c. joint osteoarthritis of the left shoulder. Dictated by: Miller Gonzalez M.D. on 07/03/2019 at 16:39 Approved by: Miller Gonzalez M.D. on 07/03/2019 at 16:40
--- NOTE | 2019-07-03 14:58 | DI.RAD.S_ITS ---
PROCEDURE: XR LUMBAR SPINE MIN 4V INDICATIONS: Low back pain - possible ankylosing spondylitis TECHNIQUE: A 5 views of the lumbar spine were acquired. COMPARISON: None. FINDINGS: Bones: 5 nonrib-bearing vertebrae are present. There is abnormal bony alignment, with mild convex leftward scoliosis centered at L3.. No vertebral body compression fractures. No suspicious bony lesions. On the lateral view the degenerative disc disease is mild to moderate over the upper half of the LS-spine and moderate over the lower half. Facet osteoarthritis is moderately severe from L3-S1 and there is a small degree of anterior L3 on L4 anterolisthesis, grade 1 from ligamentous laxity. Soft tissues: Overlying bowel gas pattern is normal. No suspicious soft tissue calcifications. Oblique images: No pars defects. IMPRESSION: Mild to moderate degenerative disc disease most prominent over the lower half of the LS-spine with anterolisthesis grade 1 mild in severity at L3-4. Facet osteoarthritis from L3 inferiorly produces facet hyperostosis to the degree that significant spinal and foraminal stenosis likely is associated. Dictated by: Miller Gonzalez M.D. on 07/03/2019 at 16:40 Approved by: Miller Gonzalez M.D. on 07/03/2019 at 16:41
--- NOTE | 2019-07-03 14:58 | DI.RAD.S_ITS ---
PROCEDURE: XR SACROILIAC JOINT MIN 3V INDICATIONS: Possible long standing Ankylosing Spondylitis TECHNIQUE: 3 views of the sacroiliac joints were acquired. COMPARISON: [facility], CR, XR LUMBAR SPINE MIN 4V, 07/03/2019, 15:32. FINDINGS: Bones: No bony erosions or ankylosis. No suspicious bony lesions. No fractures. Soft tissues: Overlying bowel gas pattern is normal. No suspicious soft tissue densities. IMPRESSION: A small degree of degenerative osteophytic changes seen at the sacroiliac joint but there is no suspicion for ankylosing spondyloarthropathy. Dictated by: Miller Gonzalez M.D. on 07/03/2019 at 16:41 Approved by: Miller Gonzalez M.D. on 07/03/2019 at 16:42
--- NOTE | 2019-07-03 14:58 | DI.RAD.S_ITS ---
PROCEDURE: XR THORACIC SPINE 3V INDICATIONS: Bilateral shoulder pain TECHNIQUE: 3 views of the thoracic spine were acquired. COMPARISON: [facility], , CHEST 2 VIEW, 12/06/2013, 17:19. FINDINGS: Bones: No fractures or dislocations. No suspicious bony lesions. 12 pairs of ribs are noted, and appear intact where visualized. Mild degenerative disc disease is seen along the thoracic spine, no subluxation is associated. At T10-T11 note is made of osteophytic spurring and possible slight anterior wedging of the T11 vertebral body, chronicity and etiology uncertain but potentially a manifestation of prior compression fracture. Soft tissues: No paravertebral stripe thickening. IMPRESSION: Mild to moderate degenerative changes along the thoracic spine but no subluxation associated. Possible T10 mild compression fracture, chronicity indeterminate. Dictated by: Miller Gonzalez M.D. on 07/03/2019 at 16:43 Approved by: Miller Gonzalez M.D. on 07/03/2019 at 16:45
--- NOTE | 2019-07-03 14:58 | DI.RAD.S_ITS ---
PROCEDURE: XR SHOULDER RT MIN 2V INDICATIONS: Bilateral shoulder pain TECHNIQUE: 3 views of the shoulder were acquired. COMPARISON: None. FINDINGS: Bones: No fractures or dislocations but there is moderate osteoarthritis at the a.c. joint.. No suspicious bony lesions. Visualized ribs appear intact. Soft tissues: No suspicious soft tissue calcifications. 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 Dictated by: Miller Gonzalez M.D. on 07/03/2019 at 16:42 Approved by: Miller Gonzalez M.D. on 07/03/2019 at 16:42
[2019-07-03 17:45] LABS: Erythrocyte Sedimentation Rate 5 MM/HR (0-20)
[2019-07-03 17:59] LABS: C-Reactive Protein Quant 1.5 mg/dL (<1.0)
[2019-07-03 18:02] LABS: Rheumatoid Factor < 8.6 IU/mL (<12.0)
[2019-07-05 10:37] LABS: CCP Antibody (IgG) < 16 Units (< 20)
[2019-07-05 15:28] LABS: HLA B27 NEGATIVE (Negative)
== END ==
PROVIDERS: PCP Physician Assistant; Visit Provider Physician Assistant
DX: M54.5 Low back pain (principal); M41.9 Scoliosis, unspecified; M45.9 Ankylosing spondylitis of unspecified sites in spine; M25.511 Pain in right shoulder; M25.512 Pain in left shoulder; M48.02 Spinal stenosis, cervical region; M54.9 Dorsalgia, unspecified
CPT/HCPCS: 36415; 72072; 72110; 72202; 73030; 81374; 85651; 86140; 86200; 86430

== ENCOUNTER → 2019-07-05 13:54 | Outpatient (CLI) | payer OTHER, SELFPAY ==
[2018-11-29 13:29] VITALS: BMI 35.6
[2019-07-05 14:08] LABS: Bacteria Urine None Seen
[2019-07-05 14:22] LABS: Appearance Urine UA CLOUDY; Bilirubin Urine UA NEGATIVE (NEGATIVE); Color Urine UA YELLOW; Glucose Urine UA NEGATIVE (Negative); Ketones Urine UA NEGATIVE (NEGATIVE); Leukocyte Esterase Urine UA NEGATIVE (NEGATIVE); Nitrite Urine UA NEGATIVE (Negative); Occult Blood Urine UA 3+ (Negative); Protein Urine UA NEGATIVE (Negative); Specific Gravity Urine UA <=1.005 (1.000-1.035); Urobilinogen Urine UA 0.2 E.U./dL (0.2)
[2019-07-05 14:27] LABS: Culture Indicated Urine Cult Not Indicated; RBC Urine 30-100/HPF (0-5/HPF); WBC Urine 0-1/HPF (0-5/HPF)
== END ==
PROVIDERS: PCP Physician Assistant; Visit Provider Physician Assistant
DX: R31.9 Hematuria, unspecified (principal)
CPT/HCPCS: 81001

== ENCOUNTER → 2019-10-20 11:49 | Outpatient (CLI) | payer OTHER, SELFPAY ==
[2018-11-29 13:29] VITALS: BMI 35.6
[2019-10-20 15:20] LABS: Influenza A - CEPHEID Flu A NEGATIVE (NEGATIVE); Influenza B - CEPHEID Flu B NEGATIVE (NEGATIVE)
[2019-10-22 20:36] LABS: COVID19 Sendout Not Detected (Not Detected)
== END ==
PROVIDERS: PCP Physician Assistant; Visit Provider Registered Nurse
DX: R05 Cough (principal); R50.9 Fever, unspecified
CPT/HCPCS: 87502

== ENCOUNTER → 2019-11-10 10:51 | Outpatient (CLI) | payer OTHER, SELFPAY ==
[2018-11-29 13:29] VITALS: BMI 35.6
--- NOTE | 2019-11-10 10:54 | DI.RAD.S_ITS ---
PROCEDURE: XR WRIST LT MIN 3V INDICATIONS: left wrist pain TECHNIQUE: 3 views of the wrist were acquired. COMPARISON: None. FINDINGS: Bones: Small corticated calcification adjacent to ulnar styloid tip is seen suggestive of old injury. No acute fractures or dislocations. No suspicious bony lesions. Scaphoid view: Scaphoid is grossly intact. Soft tissues: No suspicious soft tissue calcifications. IMPRESSION: No acute left wrist fracture or dislocation. Suggestion of old injury involving the ulnar styloid tip. Dictated by: Matt Villanueva M.D. on 11/10/2019 at 11:07 Approved by: Matt Villanueva M.D. on 11/10/2019 at 11:08
[2019-11-10 12:13] LABS: Hemoglobin A1C% w Est Avg Glu 6.2 % (4.0-6.0)
[2019-11-10 12:22] LABS: BUN Creatinine Ratio 19.4 (6-22); Blood Urea Nitrogen 12 mg/dL (7-17); Calcium 9.6 mg/dL (8.4-10.2); Carbon Dioxide 29 mmol/L (22-32); Chloride 103 mmol/L (98-107); Estimated Glomerular Filt Rate > 60.0 mL/min (>60); Glucose 116 mg/dL (80-110); HEMOLYSIS 16 (0-50); Potassium 4.7 mmol/L (3.4-5.1); Sodium 139 mmol/L (137-145)
== END ==
PROVIDERS: PCP Physician Assistant; Referring Provider Nurse Practitioner Family; Visit Provider Nurse Practitioner Family
DX: M25.532 Pain in left wrist (principal); R73.01 Impaired fasting glucose
CPT/HCPCS: 36415; 73110; 80048; 83036

== ENCOUNTER → 2020-05-08 12:34 | Outpatient (CLI) | payer OTHER, SELFPAY ==
[2018-11-29 13:29] VITALS: BMI 35.6
[2020-05-08 14:19] LABS: Hemoglobin A1C% w Est Avg Glu 6.3 % (4.0-6.0)
[2020-05-08 15:02] LABS: BUN Creatinine Ratio 20.6 (6-22); Blood Urea Nitrogen 13 mg/dL (7-17); Calcium 9.1 mg/dL (8.4-10.2); Carbon Dioxide 29 mmol/L (22-32); Chloride 103 mmol/L (98-107); Cholesterol 150 mg/dL (140-199); Estimated Glomerular Filt Rate > 60.0 mL/min (>60); Glucose 117 mg/dL (80-110); HDL Cholesterol 53 mg/dL (40-60); HEMOLYSIS < 15 (0-50); LDL Cholesterol Calculated 72 mg/dL (<100); Potassium 4.8 mmol/L (3.4-5.1); Sodium 137 mmol/L (137-145); Triglycerides 126 mg/dL (35-150)
[2020-05-08 15:29] LABS: Thyroid Stimulating Hormone 1.19 uIU/mL (0.47-4.68)
== END ==
PROVIDERS: PCP Nurse Practitioner Family; Referring Provider Nurse Practitioner Family; Visit Provider Nurse Practitioner Family
DX: R73.03 Prediabetes (principal); E78.2 Mixed hyperlipidemia; E03.9 Hypothyroidism, unspecified
CPT/HCPCS: 36415; 80048; 80061; 83036; 84443

== ENCOUNTER → 2021-02-12 14:39 | Outpatient (CLI) | payer OTHER, SELFPAY ==
[2018-11-29 13:29] VITALS: BMI 35.6
--- NOTE | 2021-02-12 14:40 | DI.US.S_ITS ---
PROCEDURE: US RENAL COMPLETE INDICATIONS: HISTORY OF KIDNEY STONES TECHNIQUE: Real-time scanning was performed of the kidneys and bladder, with image documentation. COMPARISON: [facility], CT, CT ABDOMEN PELVIS W CON, 02/27/2019, 14:06. [facility], CT, CT KIDNEY URETER BLADDER (KUB), 09/14/2018, 3:02. FINDINGS: Kidneys: Kidneys are normal in size. Right kidney measures 10.0 cm long; left kidney measures 9.1 cm long. Right renal cortical thickness is 1.0 cm; left renal cortical thickness is 1.3 cm. There is appearance of trace bilateral Jeannie the 0 caliectasis. Bilateral echogenic foci are for present. Foci are also noted at the ureterovesicular junction on the left and ureteropelvic junction on the right. Bladder: Pre-void bladder volume is 230 mL. Post-void residual is 17 mL. Pre-void images demonstrate no intraluminal masses or stones. On pre-void images, bilateral ureteral jets are noted with color Doppler interrogation. (Of note, ureteral jets may not be detectable in up to 25% of cases due to insufficient differences in specific gravity between ureteral and bladder urine). Miscellaneous: No free pelvic fluid. IMPRESSION: Echogenic foci are present within the kidneys bilaterally most suggestive of stones. Minimal bilateral pelvic caliectasis is present. Dictated by: Jasmin Phillip M.D. on 02/12/2021 at 17:58 Approved by: Jasmin Phillip M.D. on 02/12/2021 at 17:59
== END ==
PROVIDERS: PCP Nurse Practitioner Family; Referring Provider Nurse Practitioner Family; Visit Provider Nurse Practitioner Family
DX: N20.0 Calculus of kidney (principal); R31.9 Hematuria, unspecified
CPT/HCPCS: 76770

== ENCOUNTER → 2021-04-16 12:49 | Outpatient (CLI) | payer OTHER, SELFPAY ==
[2018-11-29 13:29] VITALS: BMI 35.6
[2021-04-16 13:46] LABS: Hematocrit 47.7 % (36-46); Hemoglobin 15.8 g/dL (12.0-16.0); Mean Corpuscular HGB Conc 33.2 % (30-36); Mean Corpuscular Hemoglobin 29.6 PG (26-34); Red Blood Cell Count 5.36 X10^6/uL (4.0-5.2); White Blood Cell Count 9.9 X10^3/uL (4.5-11.0)
[2021-04-16 13:55] LABS: Hemoglobin A1C% w Est Avg Glu 6.2 % (4.0-6.0)
[2021-04-16 14:01] LABS: Alanine Aminotransferase 18 IU/L (<35); Albumin 4.5 g/dL (3.5-5.0); Alkaline Phosphatase 81 U/L (38-126); Aspartate Aminotransferase 26 IU/L (14-36); Bilirubin Total 0.4 mg/dL (0.2-1.3); Blood Urea Nitrogen 13 mg/dL (7-17); Calcium 8.8 mg/dL (8.4-10.2); Carbon Dioxide 32 mmol/L (22-32); Chloride 103 mmol/L (98-107); Cholesterol 167 mg/dL (140-199); Estimated Glomerular Filt Rate > 60.0 mL/min (>60); Globulin 2.3 g/dL (1.7-4.1); Glucose 133 mg/dL (80-110); HDL Cholesterol 68 mg/dL (40-60); HEMOLYSIS 31 (0-50); LDL Cholesterol Calculated 79 mg/dL (<100); Potassium 5.1 mmol/L (3.4-5.1); Sodium 139 mmol/L (137-145); Total Protein 6.8 g/dL (6.3-8.2); Triglycerides 101 mg/dL (35-150)
[2021-04-16 14:28] LABS: Platelet Count 189 X10^3/uL (150-400); RBC Morphology Normal Morphology
== END ==
PROVIDERS: PCP Nurse Practitioner Family; Referring Provider Nurse Practitioner Family; Visit Provider Nurse Practitioner Family
DX: E03.9 Hypothyroidism, unspecified (principal); J44.9 Chronic obstructive pulmonary disease, unspecified; R73.03 Prediabetes; E78.2 Mixed hyperlipidemia
CPT/HCPCS: 36415; 80053; 80061; 83036; 85027

== ENCOUNTER → 2021-06-24 16:36 | Outpatient (CLI) | payer OTHER, SELFPAY ==
[2018-11-29 13:29] VITALS: BMI 35.6
[2021-06-24 20:20] LABS: Thyroid Stimulating Hormone 2.16 uIU/mL (0.47-4.68)
== END ==
PROVIDERS: PCP Nurse Practitioner Family; Referring Provider Nurse Practitioner Family; Visit Provider Nurse Practitioner Family
DX: E03.9 Hypothyroidism, unspecified (principal)
CPT/HCPCS: 36415; 84443

== ENCOUNTER → 2022-04-10 07:46 | Outpatient (CLI) | payer OTHER, SELFPAY ==
[2018-11-29 13:29] VITALS: BMI 35.6
[2022-04-10 08:42] LABS: Add Manual Diff / Slide Review NO; Basophils Absolute Auto 100 /uL (0-100); Basophils Percent Auto 0.7 % (0-2); Eosinophils Absolute Auto 300 /uL (0-450); Eosinophils Percent Auto 3.6 % (2-4); Hematocrit 45.8 % (36-46); Hemoglobin 15.3 g/dL (12.0-16.0); Lymphocytes Absolute Auto 3000 /uL (1100-4500); Lymphocytes Percent Auto 35.5 % (25-40); Mean Corpuscular HGB Conc 33.3 % (30-36); Mean Corpuscular Volume 86.8 fL (80-100); Monocytes Absolute Auto 800 /uL (0-900); Neutrophils Absolute Auto 4200 /uL (1500-7000); Neutrophils Percent Auto 50.2 % (50-75); Platelet Count 208 X10^3/uL (150-400); Red Blood Cell Count 5.27 X10^6/uL (4.0-5.2); Red Cell Distribution Width 14.4 % (11.6-14.8); White Blood Cell Count 8.4 X10^3/uL (4.5-11.0)
[2022-04-10 09:27] LABS: Alanine Aminotransferase 21 IU/L (<35); Albumin 4.2 g/dL (3.5-5.0); Albumin Globulin Ratio 1.7 (1.0-2.8); Alkaline Phosphatase 69 U/L (38-126); Aspartate Aminotransferase 26 IU/L (14-36); BUN Creatinine Ratio 21.4 (6-22); Bilirubin Total 0.6 mg/dL (0.2-1.3); Blood Urea Nitrogen 12 mg/dL (7-17); Calcium 9.1 mg/dL (8.4-10.2); Carbon Dioxide 28 mmol/L (22-32); Chloride 99 mmol/L (98-107); Cholesterol 159 mg/dL (140-199); Estimated Glomerular Filt Rate > 60 mL/min (>60); Globulin 2.5 g/dL (1.7-4.1); Glucose 122 mg/dL (80-110); HDL Cholesterol 63 mg/dL (40-60); HEMOLYSIS < 15 (0-50); LDL Cholesterol Calculated 71 mg/dL (<100); Potassium 4.3 mmol/L (3.4-5.1); Sodium 136 mmol/L (137-145); Total Protein 6.7 g/dL (6.3-8.2); Triglycerides 124 mg/dL (35-150); Uric Acid 3.3 mg/dL (2.5-6.2)
[2022-04-10 09:29] LABS: Hemoglobin A1C% w Est Avg Glu 6.5 % (4.0-6.0)
[2022-04-10 09:37] LABS: TSH w/ Reflex to FT4 5.77 uIU/mL (0.47-4.68)
[2022-04-10 09:40] LABS: Vitamin D 25 Hydroxy (D3) 54.7 ng/mL (30.0-100.0)
[2022-04-10 10:14] LABS: Free T4, Direct Thyroxine 1.08 ng/dL (0.78-2.19)
[2022-04-10 10:34] LABS: Creatinine Urine Random 63.7 mg/dL
[2022-04-10 10:38] LABS: Microalbumi Creatinin Ratio Ur 45.5 ug/mg CR (<30); Microalbumin Urine Random 2.9 mg/dL (0-1.6)
== END ==
PROVIDERS: PCP Pediatrics; Referring Provider Pediatrics; Visit Provider Pediatrics
DX: E03.9 Hypothyroidism, unspecified (principal); E78.2 Mixed hyperlipidemia; F32.9 Major depressive disorder, single episode, unspecified; J44.9 Chronic obstructive pulmonary disease, unspecified; M19.90 Unspecified osteoarthritis, unspecified site; M79.7 Fibromyalgia; N20.0 Calculus of kidney; F32.1 Major depressive disorder, single episode, moderate; M19.91 Primary osteoarthritis, unspecified site; R31.9 Hematuria, unspecified; E11.9 Type 2 diabetes mellitus without complications
CPT/HCPCS: 36415; 80053; 80061; 82043; 82306; 82570; 83036; 84439; 84443; 84550; 85025

== ENCOUNTER → 2022-05-01 14:13 | Outpatient (CLI) | payer OTHER, SELFPAY ==
[2018-11-29 13:29] VITALS: BMI 35.6
--- NOTE | 2022-05-01 14:14 | DI.MG.S_ITS ---
BILATERAL DIGITAL SCREENING MAMMOGRAM 3D/2D WITH CAD WITH AUGMENTATION: 05/01/2022 CLINICAL: Patient presents for routine screening. S/P bilateral augmentation. Comparison is made to exams dated: 07/23/2020 mammogram - [facility], 07/19/2017 mammogram, 10/23/2015 mammogram, and 01/24/2008 mammogram - [facility]. There are scattered areas of fibroglandular density in both breasts (category b / 25%-50% glandular tissue). Current study was also evaluated with a Computer Aided Detection (CAD) system. Bilateral breast implants are stable. No significant masses, calcifications, or other findings are seen in either breast. There has been no significant interval change. IMPRESSION: NEGATIVE There is no mammographic evidence of malignancy. A 1 year screening mammogram is recommended. Based on the Tyrer Cuzick model (a risk assessment model) the patient's lifetime risk is 7.5% and her 10 year risk is 3.5%. According to the ACR, ACS, and NCCN guidelines, an annual breast MRI exam along with mammogram is recommended if the patient's lifetime risk is 20% or greater. This exam was interpreted at Station ID: [id number]. NOTE: For mammograms, a report in lay terms will be sent to the patient. Approximately 15% of breast malignancies will not be visualized mammographically. In the management of a palpable breast mass, a negative mammogram must not discourage biopsy of a clinically suspicious lesion. Electronically Signed By: Ed rdz/rica:05/01/2022 16:12:28 letter sent: Normal Exam ACR BI-RADS Category 1: Negative 3341F
== END ==
PROVIDERS: PCP Pediatrics; Referring Provider Pediatrics; Visit Provider Pediatrics
DX: Z12.31 Encounter for screening mammogram for malignant neoplasm of breast (principal); Z98.82 Breast implant status
CPT/HCPCS: 77063; 77067

== ENCOUNTER → 2022-06-08 13:10 | Outpatient (CLI) | payer OTHER, SELFPAY ==
[2018-11-29 13:29] VITALS: BMI 35.6
[2022-06-08 14:55] LABS: COVID19 -Nasal RAPID Negative (Negative)
== END ==
PROVIDERS: PCP Pediatrics; Visit Provider Surgery
DX: Z20.822 Contact with and (suspected) exposure to COVID-19 (principal); Z01.812 Encounter for preprocedural laboratory examination
CPT/HCPCS: 87635; C9803

== ENCOUNTER 2022-06-09 10:59 | Day surgery (SDC) | payer OTHER, SELFPAY ==
[2018-11-29 13:29] VITALS: BMI 35.6
[2022-06-09] VITALS (7 sets, daily range): BP systolic 98–151; BP diastolic 65–88; PULSE 73–92; RESP 13–19; TEMP 36.8–37.1; O2SAT 93–96; BMI 37.8
--- NOTE | 2022-06-09 | PATH_ITS ---
[facility] Accession Number: [id number] . 01 Material submitted: . colon - ASCENDING COLON POLYP . 01 Diagnosis: Ascending Colon Polyp: Tubular adenoma. MRV 06/11/2022 1310 Local . 01 Electronically signed: . Angela Robison MD, Pathologist NPI- [id number] . 01 Gross description: . ASCENDING COLON POLYP: Received in formalin is 1 fragment(s) of solorio, soft tissue measuring 0.5 x 0.3 x 0.2 cm submitted entirely in 1 cassette(s) /CPE 06/10/2022 1100 Local . 01 Pathologist provided ICD-10: Z86.010, K63.5 . 01 CPT . 720229 Specimen Comment: A courtesy copy of this report has been sent to [phone] Performed at: 01 [facility] [address] [place] [address] [id number] MD Myron Bird MD Phone: [phone]
[2022-06-09] MEDS: LACTATED RINGERS 1,000 ML 200 ML IV (12:06)
--- NOTE | 2022-06-09 13:26 | P.HP_ITS ---
History of Present Illness History of Present Illness Date Patient Seen: 06/09/22 Time Patient Seen: 13:27 Chief complaint: SDC Narrative: The patient presents for colorectal screening. She has a personal history of colonic polyps. Last colonoscopy was probably 5 years ago. No personal or family history of colon cancer. She has occasional blood per rectum which she attributes to hemorrhoid disease. Patient History Medical History Chronic back pain (2001) Depression (Unknown) Endometriosis (1994) Fibromyalgia (2013) Hematuria (09/2020) Hyperlipemia (~1994) Hypothyroidism (Unknown) Kidney stones Osteopenia (2015) Prediabetes (2009) Recurrent kidney stones Rheumatoid arthritis (01/2016) Tendinitis, de Quervain's (04/2019) Urinary incontinence (2013) Surgical History Status post cholecystectomy Status post hysterectomy Status post laparoscopic supracervical hysterectomy Status post parathyroidectomy (09/02/16) Family & Social History Family History Grandmother Heart disease Mother Lung cancer Social History: household members spouse Tobacco & Substance use: Tobacco type cigarettes Smoking Status Current every day smoker alcohol intake former alcohol intake frequency 0-2 drinks per day Substance Use Type does not use Meds Home Medications and Allergies Home Medications Medication Instructions Recorded Confirmed Type multivitamin (Multiple Vitamins 1 tab PO QDAY ##0 11/16/16 03/27/22 History tablet) cholecalciferol (vitamin D3) 25 1,000 unit PO DAILY 11/30/18 03/27/22 History mcg (1,000 unit) capsule tizanidine 4 mg tablet 8 mg PO ONCE PRN Muscle Spasm 11/30/18 06/09/22 History morphine 15 mg tablet,extended 15 mg PO TID PRN Pain (Scale Score 11/14/20 06/09/22 History release 7-10) oxycodone 15 mg tablet 15 mg PO TID PRN Pain (Scale Score 11/14/20 06/09/22 History 7-10) levothyroxine 75 mcg tablet 75 mcg PO QDAY #90 tabs 06/25/21 06/09/22 Rx (Synthroid) meloxicam 7.5 mg tablet See Rx Instructions .Route 07/08/21 06/09/22 Rx .COMPLEX #90 tabs doxepin 10 mg capsule See Rx Instructions .Route 09/02/21 06/09/22 Rx .COMPLEX #180 caps mirabegron 25 mg tablet,extended See Rx Instructions .Route 09/04/21 06/09/22 Rx release 24 hr (Myrbetriq) .COMPLEX #90 tabs escitalopram oxalate 20 mg tablet 20 mg PO DAILY #90 tabs 09/30/21 06/09/22 Rx simvastatin 40 mg tablet See Rx Instructions .Route 02/10/22 06/09/22 Rx .COMPLEX #90 tabs ipratropium 20 mcg-albuterol 100 1 puff inhalation Q4H PRN 03/31/22 06/09/22 Rx mcg/actuation mist for inhalation shortness of breath or wheezing #4 (Combivent Respimat) grams fluticasone propionate 115 See Rx Instructions .Route 05/28/22 06/09/22 Rx mcg-salmeterol 21 mcg/actuation .COMPLEX #24 grams HFA inhaler (Advair HFA) sodium,potassium,mag sulfates 17.5 See Rx Instructions PO .COMPLEX 05/29/22 Rx gram-3.13 gram-1.6 gram oral soln #354 mL (Suprep Bowel Prep Kit) Allergies Allergy/AdvReac Type Severity Reaction Status Date / Time epinephrine [EPINEPHRINE] Allergy Severe TROUBLE Verified 06/09/22 11:56 BREATHING - HAD ASTHMA A CHILD bupropion AdvReac Severe Very flat Verified 06/09/22 11:56 affect pregabalin [From LYRICA] AdvReac Intermediate SOBBING & Verified 06/09/22 11:56 CONFUSION NOT A DRUG I EVER WANT TO TAKE AGAIN Exam Vital Signs (past 8 hours): - 06/09/22 11:40 Temperature 98.7 F Pulse Rate 92 H Respiratory Rate 16 Blood Pressure 141/82 H Pulse Oximetry 93 Oxygen Delivery Method Room Air Oxygen Delivery Method Room Air Narrative Exam Narrative: General adult woman alert oriented no acute distress Abdomen soft nontender nondistended Assessment & Plan Assessment & Plan narrative: The patient requires colorectal screening and colonoscopy is recommended. Technical details were discussed. Risks, benefits, alternatives explained. Risks including but not limited to myocardial infarction, aspiration, bleeding, pain, missed lesion, incomplete examination, need for further radiographic saul dies, colonic perforation, and need for major abdominal surgery were discussed. All questions were answered to their satisfaction, and they are in agreement with this plan. Time Spent With Patient Critical Care time: I spent a total of [] minutes of critical care time on this patient's care today; this time is exclusive of procedural time.
--- NOTE | 2022-06-09 13:29 | PM.OP.COLON ---
Operative Date/Time/Diagnoses Date of procedure: 06/09/22 Time of procedure: 13:29 Pre-op diagnosis: Personal history of colonic polyps Post-op diagnosis: same Procedure & Clinicians Study performed: Colonoscopy Same procedure as scheduled: Yes Indications: Personal history of colonic polyps Surgeon: Kaiser Darling Procedure Notes Procedure in detail: The history and physical was performed/updated and the patient is ASA class is 2. The procedure was discussed in detail with the patient. Potential risks complications including infection, bleeding, missed diagnosis, perforation, need for surgery, and were explained. Their questions were answered and informed consent was obtained. Patient was brought to the procedure room and placed standard monitoring equipment. The patient's vital signs were monitored continuously throughout the entire procedure. Prior to starting time-out was performed. The patient was placed in the left lateral recumbent position. Procedural sedation was administered by anesthesia. Examination began with a thorough inspection of the perianal area there was no evidence of fissures, fistulae, external hemorrhoids or cutaneous malignancy. The colonoscopy scope was then placed into the anal canal and was advanced to the cecum, which was identified by the ileocecal valve, the appendiceal orifice and the confluence of the taenia. The scope was then slowly withdrawn examining colon thoroughly in all directions, irrigating it of any residual stool. FINDINGS 1. Ascending colon-5 mm polyp removed with cold snare 2. Sigmoid-mild diverticulosis 3. Internal hemorrhoid The patient tolerated the procedure well. They will be discharged once criteria are met. The prep was of good/excellent quality. The withdrawl time was 8 minutes. Specimen(s): other (Ascending colonic polyp) Complications: none Impression: Colonic polyp Post-procedure Recommendations: Will call with biopsy results Disposition: same day surgery
== END 2022-06-09 14:52 | disposition home or self-care (01) ==
PROVIDERS: PCP Family Medicine; Referring Provider Surgery; Visit Provider Surgery
PROC: 0DJD8ZZ Inspection of Lower Intestinal Tract, Via Natural or Artificial Opening Endoscopic (ICD-10-PCS; CPT 45378; principal; 2022-06-09 13:00)
DX: Z12.11 Encounter for screening for malignant neoplasm of colon (principal); Z86.010 Personal history of colon polyps; F17.210 Nicotine dependence, cigarettes, uncomplicated; E03.9 Hypothyroidism, unspecified; M06.9 Rheumatoid arthritis, unspecified; K57.30 Diverticulosis of large intestine without perforation or abscess without bleeding; K64.8 Other hemorrhoids; D12.2 Benign neoplasm of ascending colon
CPT/HCPCS: 45385; J2704; J3010

== ENCOUNTER → 2022-08-21 14:19 | Outpatient (CLI) | payer OTHER, SELFPAY ==
[2018-11-29 13:29] VITALS: BMI 35.6
[2022-08-21 15:04] LABS: Influenza A - CEPHEID Flu A NEGATIVE (NEGATIVE); Influenza B - CEPHEID Flu B NEGATIVE (NEGATIVE); Respiratory Syncytial Virus POSITIVE (Negative)
[2022-08-21 15:06] LABS: COVID-19 CEPHEID 4-PLEX PCR Negative (Negative)
== END ==
PROVIDERS: PCP Family Medicine; Visit Provider Family Medicine
DX: R05.9 Cough, unspecified (principal); R06.02 Shortness of breath
CPT/HCPCS: 0241U

== ENCOUNTER 2023-03-12 19:33 | Emergency (ER) | payer MEDICARE, OTHER, SELFPAY ==
[2018-11-29 13:29] VITALS: BMI 35.6
[2023-03-12 19:40] VITALS: BP 176/113; PULSE 102; RESP 16; TEMP 36.1; O2SAT 94; BMI 37.3
[2023-03-12 19:52] LABS: Appearance Urine UA CLOUDY; Bilirubin Urine UA NEGATIVE (NEGATIVE); Color Urine UA RED; Glucose Urine UA NEGATIVE (Negative); Ketones Urine UA NEGATIVE (NEGATIVE); Leukocyte Esterase Urine UA TRACE (NEGATIVE); Nitrite Urine UA NEGATIVE (Negative); Occult Blood Urine UA 3+ (Negative); Protein Urine UA 2+ (Negative)
--- NOTE | 2023-03-12 19:54 | DI.CT.S_ITS ---
P. ROCEDURE: CT KIDNEY URETER BLADDER (KUB) INDICATIONS: right flank pain with blood in urine TECHNIQUE: Axial sections were acquired from the lung bases to the pubic symphysis. Coronal and sagittal reformats were performed. For radiation dose reduction, the following was used: automated exposure control, adjustment of mA and/or kV according to patient size. COMPARISON: [facility], CT, CT KIDNEY URETER BLADDER (KUB), 09/14/2018, 3:02. FINDINGS: Image quality: Excellent. Lung bases: There is minimal atelectasis. Heart: Heart is normal in size. URINARY: Right Kidney and Ureter: There is an obstructing urinary stone at the right ureteropelvic junction measuring 0.4 cm with associated mild right hydronephrosis as well as perinephric fat stranding. The right ureter is nondistended. There are 3 additional small nonobstructing right renal stones measuring up to 0.3 cm. Left Kidney and Ureter: There is a urinary stone at the left ureteropelvic junction measuring up to 1.4 cm with attenuation values of approximately 900-1000 Hounsfield units. No associated left hydronephrosis. There are 4 additional smaller nonobstructing left renal stones in the left kidney measuring up to 0.3 cm. Left ureter is nondistended. Bladder: Normal wall thickness. No stones. ABDOMEN: Liver: Noncontrast evaluation of the liver demonstrates no discrete mass. Gallbladder: Surgically absent. Biliary ducts: There is mild biliary ductal dilatation redemonstrated. No calcified common duct stones or discrete obstructing mass identified. Pancreas: Unremarkable. No pancreatic duct dilatation. Spleen: Normal in size. Adrenal Glands: No adrenal nodules. Stomach and Bowel: A gastric lap band is redemonstrated. Stomach, small bowel loops, and colon are normal in caliber and wall thickness. The appendix is normal. There is colonic diverticulosis without acute diverticulitis. Peritoneum: No abnormal intraperitoneal fluid. No free air. Ventral Wall: No hernia. Abdominal Nodes: No retroperitoneal or mesenteric adenopathy by size criteria. Vessels: Aorta and inferior vena cava are normal in size. PELVIS: Pelvic Organs: Uterus is surgically absent. Pelvic Nodes: No enlarged lymph nodes. Miscellaneous: No inguinal hernias identified. Bones: Visualized osseous structures demonstrate no suspicious focal lesions. IMPRESSION: 1. Obstructing urinary stone at the right UPJ with mild right hydronephrosis. 2. Urinary stone in the left UPJ without associated left hydronephrosis. 3. Multiple additional smaller nonobstructing bilateral renal stones. 4. No evidence of appendicitis Dictated by: Myron Patel M.D. on 03/13/2023 at 0:41 Approved by: Myron Patel M.D. on 03/13/2023 at 0:45
[2023-03-12 19:58] LABS: pH Urine UA 5.5 (4.5-8.0)
[2023-03-12] MEDS: KETOROLAC 30 MG/ML VIAL 15 MG IV (20:00)
[2023-03-12 20:01] LABS: Bacteria Urine Few (2-10); Culture Indicated Urine Cult Not Indicated; RBC Urine >100/HPF (0-5/HPF); Squamous Epithelial Cell Urine 0-1 /HPF (0-5/HPF); WBC Urine 1-5/HPF (0-5/HPF)
[2023-03-12 20:08] LABS: Add Manual Diff / Slide Review NO; Basophils Absolute Auto 100 /uL (0-100); Basophils Percent Auto 0.9 % (0-2); Eosinophils Absolute Auto 400 /uL (0-450); Eosinophils Percent Auto 3.6 % (2-4); Hematocrit 46.1 % (36-46); Hemoglobin 15.6 g/dL (12.0-16.0); Lymphocytes Absolute Auto 3300 /uL (1100-4500); Lymphocytes Percent Auto 29.8 % (25-40); Mean Corpuscular HGB Conc 33.8 % (30-36); Mean Corpuscular Hemoglobin 29.4 PG (26-34); Monocytes Absolute Auto 1000 /uL (0-900); Monocytes Percent Auto 8.8 % (3-14); Neutrophils Absolute Auto 6200 /uL (1500-7000); Neutrophils Percent Auto 56.9 % (50-75); Platelet Count 265 X10^3/uL (150-400); Red Cell Distribution Width 14.6 % (11.6-14.8); White Blood Cell Count 10.9 X10^3/uL (4.5-11.0)
[2023-03-12 20:21] LABS: Alanine Aminotransferase 25 IU/L (<35); Albumin 4.3 g/dL (3.5-5.0); Albumin Globulin Ratio 1.5 (1.0-2.8); Alkaline Phosphatase 82 U/L (38-126); Aspartate Aminotransferase 28 IU/L (14-36); Bilirubin Total 0.3 mg/dL (0.2-1.3); Blood Urea Nitrogen 14 mg/dL (7-17); Calcium 9.2 mg/dL (8.4-10.2); Carbon Dioxide 31 mmol/L (22-32); Chloride 100 mmol/L (98-107); Estimated Glomerular Filt Rate > 60 mL/min (>60); Globulin 2.8 g/dL (1.7-4.1); Glucose 115 mg/dL (80-110); HEMOLYSIS 19 (0-50); Potassium 4.3 mmol/L (3.4-5.1); Sodium 136 mmol/L (137-145); Total Protein 7.1 g/dL (6.3-8.2)
--- NOTE | 2023-03-12 22:11 | ED_ITS ---
HPI - Back Pain/Injury General Chief Complaint: Back Pain/Injury Stated Complaint: Kidney stone Time Seen by Provider: 03/12/23 22:04 Source: patient Mode of arrival: Ambulatory History of Present Illness HPI Narrative: Patient is a 63-year-old female. She has had kidney stones in the past. She states that several hours prior to arrival here in the emergency department she had fairly sudden onset of right-sided flank pain radiating around to her front and into her groin that has felt very similar to prior history of stones. She i s also having blood in her urine. No vomiting. No fevers. No left-sided discomfort. No skin rashes. Related Data Home Medications Medication Instructions Recorded Confirmed multivitamin (Multiple Vitamins 1 tab PO QDAY ##0 11/16/16 02/15/23 tablet) cholecalciferol (vitamin D3) 25 1,000 unit PO DAILY 11/30/18 02/15/23 mcg (1,000 unit) capsule tizanidine 4 mg tablet 8 mg PO ONCE PRN Muscle Spasm 11/30/18 02/15/23 morphine 15 mg tablet,extended 15 mg PO TID PRN Pain (Scale Score 11/14/20 02/15/23 release 7-10) oxycodone 15 mg tablet 15 mg PO TID PRN Pain (Scale Score 11/14/20 02/15/23 7-10) Previous Rx's Medication Instructions Recorded escitalopram oxalate 20 mg tablet 20 mg PO DAILY #90 tabs 09/14/22 doxepin 10 mg capsule See Rx Instructions .Route 10/13/22 .COMPLEX #180 caps ipratropium 20 mcg-albuterol 100 1 puff inhalation Q4H PRN 10/13/22 mcg/actuation mist for inhalation shortness of breath or wheezing #4 (Combivent Respimat) grams meloxicam 7.5 mg tablet 7.5 mg PO DAILY #90 tabs 10/13/22 fluticasone propionate 115 See Rx Instructions .Route 02/15/23 mcg-salmeterol 21 mcg/actuation .COMPLEX #24 grams HFA inhaler (Advair HFA) levothyroxine 88 mcg tablet 88 mcg PO DAILY #90 tabs 02/15/23 mirabegron 25 mg tablet,extended See Rx Instructions .Route 02/15/23 release 24 hr (Myrbetriq) .COMPLEX #90 tabs simvastatin 40 mg tablet See Rx Instructions .Route 02/15/23 .COMPLEX #90 tabs ketorolac 10 mg tablet 10 mg PO Q6H PRN pain 5 days #20 03/13/23 tabs ondansetron 4 mg disintegrating 4 mg PO Q6H PRN nausea and 03/13/23 tablet vomiting #10 tabs tamsulosin 0.4 mg capsule (Flomax) 0.4 mg PO DAILY #30 caps 03/13/23 Allergies Allergy/AdvReac Type Severity Reaction Status Date / Time epinephrine [EPINEPHRINE] Allergy Severe TROUBLE Verified 02/15/23 11:08 BREATHING - HAD ASTHMA A CHILD bupropion AdvReac Severe Very flat Verified 02/15/23 11:08 affect pregabalin [From [facility]] AdvReac Intermediate SOBBING & Verified 02/15/23 11:08 CONFUSION NOT A DRUG I EVER WANT TO TAKE AGAIN Review of Systems Constitutional Constitutional: Reports system reviewed and no additional complaints, except as documented Respiratory Respiratory: Reports system reviewed and no additional complaints, except as documented Gastrointestinal Gastrointestinal: Reports system reviewed and no additional complaints, except as documented Genitourinary Genitourinary: Reports system reviewed and no additional complaints, except as documented Musculoskeletal Musculoskeletal: Reports system reviewed and no additional complaints, except as documented Integumentary/Breasts Skin/Breast: Reports system reviewed and no additional complaints, except as documented Hematologic/Lymphatic On Anticoagulants: No Patient History Medical History Chronic back pain (2001) Depression (Unknown) Endometriosis (1994) Fibromyalgia (2013) Hematuria (09/2020) Hyperlipemia (~1994) Hypothyroidism (Unknown) Kidney stones Osteopenia (2015) Prediabetes (2009) Recurrent kidney stones Rheumatoid arthritis (01/2016) Tendinitis, de Quervain's (04/2019) Urinary incontinence (2013) Surgical History Status post cholecystectomy Status post hysterectomy Status post laparoscopic supracervical hysterectomy Status post parathyroidectomy (09/02/16) Family History Grandmother Heart disease Mother Lung cancer Social History household members: spouse Smoking Status: Current every day smoker Tobacco: How many years used: 49 quit status: not considering quitting second hand exposure: No alcohol intake: former substance use type: does not use Smoking Status: Current every day smoker alcohol intake frequency: 0-2 drinks per day Substance Use Type: does not use Exam Initial Vital Signs Initial Vital Signs: Vital Signs Temperature 97.0 F L 03/12/23 19:40 Pulse Rate 102 H 03/12/23 19:40 Respiratory Rate 16 03/12/23 19:40 Blood Pressure 176/113 H 03/12/23 19:40 Pulse Oximetry 94 03/12/23 19:40 Oxygen Delivery Method Room Air 03/12/23 19:40 HENMT Head: normal to inspection and normocephalic Resp Effort & Inspection: normal respiratory effort Auscultation: clear to auscultation bilaterally Cardio Rate: regular rate Rhythm: regular rhythm GI Inspection: normal to inspection Palpation: soft and No tender Skin General: no rashes or lesions noted Neuro General: patient alert, patient awake and moves all extremities Extrem General: capillary refill normal Course Orders Ordered: ED Orders 03/12/23 19:45 Urinalysis and Microscopic Stat 03/12/23 19:50 CMP [Comprehensive Metabolic Panel] Stat Complete Blood Count AUTO DIFF Stat 03/12/23 19:54 CT kidney ureter bladder (KUB) Stat Discontinued Medications Hydrocodone Bitart/Acetaminophen (Hydrocodone/Acet 5/325 Tablet) 1 tab PO NOW ONE Stop: 03/13/23 00:24 Last Admin: 03/13/23 00:29 Dose: 1 tab Documented By: TAD Ketorolac Tromethamine (Ketorolac 30 Mg/Ml Vial) 15 mg IV NOW ONE Stop: 03/12/23 19:54 Last Admin: 03/12/23 20:00 Dose: 15 mg Documented By: HNG Vital Signs Vital signs: Vital Signs - 8 hr 03/12/23 19:40 03/12/23 22:59 Temperature 97.0 F L Pulse Rate 102 H 78 Respiratory Rate 16 Blood Pressure 176/113 H 141/78 H Pulse Oximetry 94 94 Oxygen Delivery Method Room Air Room Air MDM - Back Pain/Injury Lab Data Attestation: I reviewed the patient's lab results. 03/12/23 19:50 03/12/23 19:50 Labs: Lab Results 03/12/23 03/12/23 03/12/23 Range/Units 19:45 19:50 19:50 WBC 10.9 (4.5-11.0) X10^3/uL RBC 5.30 H (4.0-5.2) X10^6/uL Hgb 15.6 (12.0-16.0) g/dL Hct 46.1 H (36-46) % MCV 87.0 (80-100) fL MCH 29.4 (26-34) PG MCHC 33.8 (30-36) % RDW 14.6 (11.6-14.8) % Plt Count 265 (150-400) X10^3/uL Neut % (Auto) 56.9 (50-75) % Lymph % (Auto) 29.8 (25-40) % Shackelford % (Auto) 8.8 (3-14) % Eos % (Auto) 3.6 (2-4) % Baso % (Auto) 0.9 (0-2) % Neut # (Auto) 6200 (6984-4929) /uL Lymph # (Auto) 3300 (7929-7017) /uL [place]ord # (Auto) 1000 H (0-900) /uL Eos # (Auto) 400 (0-450) /uL Baso # (Auto) 100 (0-100) /uL Sodium 136 L (137-145) mmol/L Potassium 4.3 (3.4-5.1) mmol/L Chloride 100 (98-107) mmol/L Carbon Dioxide 31 (22-32) mmol/L BUN 14 (7-17) mg/dL Creatinine 0.61 (0.52-1.04) mg/dL Estimated GFR > 60 (>60) mL/min BUN/Creatinine Ratio 23.0 H (6-22) Glucose 115 H (80-110) mg/dL Calcium 9.2 (8.4-10.2) mg/dL Total Bilirubin 0.3 (0.2-1.3) mg/dL AST 28 (14-36) IU/L ALT 25 (<35) IU/L Alkaline Phosphatase 82 (38-126) U/L Total Protein 7.1 (6.3-8.2) g/dL Albumin 4.3 (3.5-5.0) g/dL Globulin 2.8 (1.7-4.1) g/dL Albumin/Globulin Ratio 1.5 (1.0-2.8) Urine Color Red Urine Appearance Cloudy Urine pH 5.5 (4.5-8.0) Ur Specific Burns 1.020 (1.000-1.035) Urine Protein 2+ H (Negative) Urine Glucose (UA) Negative (Negative) g/dL Urine Ketones Negative (NEGATIVE) Urine Occult Blood 3+ H (Negative) Urine Nitrate Negative (Negative) Urine Bilirubin Negative (NEGATIVE) Urine Urobilinogen 1.0 (0.2) E.U./dL Ur Leukocyte Esterase Trace H (NEGATIVE) Urine RBC >100/hpf H (0-5/HPF) Urine WBC 1-5/hpf (0-5/HPF) Ur Squamous Epith Cells 0-1 /hpf (0-5/HPF) Urine Bacteria Few (2-10) H (None) Ur Culture Indicated? Cult not indicated Imaging Data CT scan - abdomen/pelvis: Radiologist's Impression: P.? ROCEDURE:? CT KIDNEY URETER BLADDER (KUB) ? INDICATIONS:? right flank pain with blood in urine ? TECHNIQUE:? Axial sections were acquired from the lung bases to the pubic symphysis.? Coronal and sagittal reformats were performed.? For radiation dose reduction, the following was used: ?automated exposure control, adjustment of mA and/or kV according to patient size.? ? COMPARISON:? [facility], CT, CT KIDNEY URETER BLADDER (KUB), 09/14/2018, 3:02. ? FINDINGS:? Image quality:? Excellent.? ? Lung bases:? There is minimal atelectasis.? ? Heart:? Heart is normal in size. ? URINARY: Right Kidney and Ureter: ? There is an obstructing urinary stone at the right ureteropelvic junction measuring 0.4 cm with associated mild right hyd ronephrosis as well as perinephric? fat stranding.? The right ureter is nondistended.? There are 3 a dditional small nonobstructing right renal stones measuring up to 0.3 cm. ? Left Kidney and Ureter:? There is a urinary stone at the left ureteropelvic junction measuring up to 1.4 cm with attenuation values of approximately 900-1000 Hounsfield units.? No associated left hydronephrosis.? There are 4 additional smaller nonobstructing left renal stones in the left kidney measuring up to 0.3 cm.? Left ureter is nondistended. ? Bladder:? Normal wall thickness. No stones. ? ? ? ABDOMEN: Liver:? Noncontrast evaluation of the liver demonstrates no discrete? mass. Gallbladder:? Surgically absent. Biliary ducts:? There is mild biliary ductal dilatation redemonstrated.? No calcified common duct stones or discrete obstructing mass identified. Pancreas:? Unremarkable.? No pancreatic duct dilatation.? Spleen:? Normal in size.? ? Adrenal Glands:? No adrenal nodules.? ? ? Stomach and Bowel:? A gastric lap band is redemonstrated.? Stomach, small bowel loops, and colon are normal in caliber and wall thickness.? The appendix is normal.? There is colonic diverticulosis without acute diverticulitis. Peritoneum:? No abnormal intraperitoneal fluid.? No free air.? ? Ventral Wall: ? No hernia.? Abdominal Nodes:? No retroperitoneal or mesenteric adenopathy by size criteria.? Vessels:? Aorta and inferior vena cava are normal in size.? ? PELVIS: Pelvic Organs:? Uterus is surgically absent.? ? Pelvic Nodes: No enlarged lymph nodes.? Miscellaneous: No inguinal hernias identified. ? ? ? Bones:? Visualized osseous structures demonstrate no suspicious focal lesions. IMPRESSION:? ? 1. Obstructing urinary stone at the right UPJ with mild right hydronephrosis. ? 2. Urinary stone in the left UPJ without associated left hydronephrosis. ? 3. Multiple additional smaller nonobstructing bilateral renal stones. ? 4. No evidence of appendicitis? MDM Narrative Medical decision making narrative: Patient does have red blood cells in her urine but no other indication of a urinary tract infection. The CT scan does show a 4 mm proximal right-sided stone in a rather large left-sided proximal stone. She does not have any left- sided symptoms. Plan to be is to discharge patient home with symptom control. Because of the left-sided stone we will place her on Flomax despite the fact she does not have any symptoms on this side. I did tell her about the stones both sides and that she does need follow-up with urology for further evaluation. Patient is tolerating oral intake. He was given return precautions. She expressed understanding and agreement. Discharge Plan Departure Patient Disposition: Home Clinical Impression: Renal colic on right side Instructions: Kidney Stones -- Adult Activity Restrictions/Additional Instructions: I do recommend that you take all of the medications as directed. Continue all of your home medications as well. Would also recommend that you start taking a medicine to protect her stomach such as Tums or famotidine. You can purchase this [id number]. Contact the urologist of the number provided below for a follow-up. Prescriptions: New ondansetron 4 mg tablet,disintegrating 4 mg PO Q6H PRN (Reason: nausea and vomiting) Qty: 10 0RF tamsulosin [Flomax] 0.4 mg capsule 0.4 mg PO DAILY Qty: 30 0RF ketorolac 10 mg tablet 10 mg PO Q6H PRN (Reason: pain) 5 Days Qty: 20 0RF No Action multivitamin [Multiple Vitamins] 1 EACH tablet 1 tab PO QDAY Qty: 0 escitalopram oxalate 20 mg tablet 20 mg PO DAILY Qty: 90 3RF Combivent Respimat 20-100 mcg/actuation mist 1 puff inhalation Q4H PRN (Reason: shortness of breath or wheezing) Qty: 4 4RF meloxicam 7.5 mg tablet 7.5 mg PO DAILY Qty: 90 1RF doxepin 10 mg capsule See Rx Instructions .ROUTE .COMPLEX Qty: 180 1RF Dose Instruction: TAKE 1 OR 2 CAPSULES BY MOUTH AT BEDTIME Rx Instructions: TAKE 1 OR 2 CAPSULES BY MOUTH AT BEDTIME tizanidine 4 mg tablet 8 mg PO ONCE PRN (Reason: Muscle Spasm) cholecalciferol (vitamin D3) 1,000 unit capsule 1,000 unit PO DAILY oxycodone 15 mg tablet 15 mg PO TID PRN (Reason: Pain (Scale Score 7-10)) Advair HFA 115-21 mcg/actuation HFA aerosol inhaler See Rx Instructions .ROUTE .COMPLEX Qty: 24 5RF Dose Instruction: USE 2 INHALATIONS BY MOUTH TWICE DAILY FOR COPD. ADMINISTER WITH SPACER, RINSE MOUTH, AND BRUSH TEETH AFTER USE Rx Instructions: USE 2 INHALATIONS BY MOUTH TWICE DAILY FOR COPD. ADMINISTER WITH SPACER, RINSE MOUTH, AND BRUSH TEETH AFTER USE levothyroxine 88 mcg tablet 88 mcg PO DAILY Qty: 90 3RF Myrbetriq 25 mg tablet extended release 24 hr See Rx Instructions .ROUTE .COMPLEX Qty: 90 1RF Dose Instruction: TAKE 1 TABLET BY MOUTH ONCE DAILY Rx Instructions: TAKE 1 TABLET BY MOUTH ONCE DAILY simvastatin 40 mg tablet See Rx Instructions .ROUTE .COMPLEX Qty: 90 3RF Dose Instruction: TAKE 1 TABLET BY MOUTH AT BEDTIME Rx Instructions: TAKE 1 TABLET BY MOUTH AT BEDTIME morphine 15 mg tablet extended release 15 mg PO TID PRN (Reason: Pain (Scale Score 7-10)) Referrals: Kris Brannon MD [Physician] - Jenny Roberts DO [Primary Care Provider] - Stand Alone Forms: Patient Portal/API
[2023-03-12 22:59] VITALS: BP 141/78; PULSE 78; O2SAT 94
[2023-03-13] MEDS: HYDROCODONE/ACET 5/325 TABLET 1 TAB PO (00:29)
--- NOTE | 2023-03-13 01:13 | PC.NURSE ---
Patient declined discharge vital signs, provider aware.
== END 2023-03-13 01:15 | disposition home or self-care (01) ==
PROVIDERS: Emergency Medicine; Emergency Provider Emergency Medicine; PCP Family Medicine
DX: N23 Unspecified renal colic (principal); R31.9 Hematuria, unspecified
CPT/HCPCS: 36415; 74176; 80053; 81001; 85025; 96374; 99284; J1885

== ENCOUNTER → 2023-03-16 10:12 | Outpatient (CLI) | payer MEDICARE, OTHER, SELFPAY ==
[2018-11-29 13:29] VITALS: BMI 35.6
[2023-03-16 11:08] LABS: Appearance Urine UA CLEAR; Bilirubin Urine UA NEGATIVE (NEGATIVE); Color Urine UA YELLOW; Glucose Urine UA NEGATIVE (Negative); Ketones Urine UA NEGATIVE (NEGATIVE); Leukocyte Esterase Urine UA TRACE (NEGATIVE); Nitrite Urine UA NEGATIVE (Negative); Occult Blood Urine UA TRACE-INTACT (Negative); Protein Urine UA NEGATIVE (Negative); Urobilinogen Urine UA 0.2 E.U./dL (0.2)
[2023-03-16 11:13] LABS: pH Urine UA 5.5 (4.5-8.0)
[2023-03-16 11:24] LABS: Bacteria Urine Moderate (10-30); Culture Indicated Urine Specimen Cultured; RBC Urine 0-1/HPF (0-5/HPF); Squamous Epithelial Cell Urine 1-5 /HPF (0-5/HPF); WBC Urine 5-10/HPF (0-5/HPF)
== END ==
PROVIDERS: PCP Family Medicine; Referring Provider Family Medicine; Visit Provider Family Medicine
DX: N20.0 Calculus of kidney (principal); R31.9 Hematuria, unspecified
CPT/HCPCS: 81001; 87086

== ENCOUNTER 2023-03-30 08:33 | Day surgery (SDC) | payer MEDICARE, OTHER, SELFPAY ==
[2018-11-29 13:29] VITALS: BMI 35.6
--- NOTE | 2023-03-30 09:51 | PM.PREOP ---
Pre-operative Note COVID-19 COVID-19 status: Not tested Criteria for continued procedure: Non-surgical alternatives not available or appropriate per current SOC Interval Note History & Physical reviewed/Exam performed by Physician: Yes Changes to H&P: No
[2023-03-30 09:52] VITALS: BP 118/73; PULSE 81; RESP 16; TEMP 36.7; O2SAT 95; BMI 36.3
[2023-03-30] MEDS: LACTATED RINGERS 1,000 ML 42 ML IV (10:00)
[2023-03-30] MEDS: ALBUTEROL/IPRATROPIUM 3 ML AMPUL INH (10:02)
[2023-03-30] MEDS: CEFAZOLIN 2 GM/100 ML PREMIX 100 ML IV (10:22)
--- NOTE | 2023-03-30 10:44 | SUR.OPER ---
Lithotomy on padded OR bed, head on pillow, arms secured on padded arm boards at <90 degrees abduction. Legs secured in padded yellow fins stirrups.
--- NOTE | 2023-03-30 10:50 | PM.OP.1 ---
Procedure & Clinicians Procedure: Cystoscopy with bilateral ureteral stent placement Same procedure as scheduled: Yes Indications: This 63-year-old female presented to the emergency department with complaint of colic was found to have hematuria through imaging was found to have bilateral ureteral calculi. She presents this time for cystoscopy with bilateral stent placement to eliminate the ureteral obstruction. Her stones will be treated at a later date once the ?dust has settled?. Surgeon: Kris Brannon Click Yes if Unassisted: Yes Anesthesia Type: General Operative Notes Findings: Findings: External genitalia appeared normal. The urethral meatus was normal the urethra is normal along its length. The ureteral orifices were normal position with clear efflux bilaterally. The bladder mucosa in the remainder of the bladder was normal. The stones were noted to be in the proximal ureter. The 7 Chinese by multi length stents were left in position in the right collecting system and left collecting system without a string. There were no other abnormalities noted. Closure Type: not applicable Specimen(s): none sent Prosthetic devices, grafts, tissues, transplants, or devices: Seven Chinese by multilink stent left in the right and left renal collecting systems without a string. Blood products transfused: none Procedure in detail: Procedure in detail: After informed consent was obtained, the patient was identified and brought to the operating room where she is placed in a supine position on the table. Once in the supine position the patient had anesthesia induced and maintained. Ensuring an adequate level of anesthesia the patient was transitioned to the lithotomy position where she was prepped, draped and prepared for Transurethral procedure. After ensuring an adequate level of anesthesia, prepping, draping, time-out a 22 Chinese cystoscope was passed through the urethra and bladder were cystoscopy was performed. The right ureteral orifice once again identified and the hybrid guidewire was passed up in the collecting system under fluoroscopic visualization. The stent was then passed over the wire and into the renal pelvis wire was positioned via fluoroscopy was positioned in the bladder under direct vision the wire was removed after the nylon horn as did been removed and the stent was left in good position. The left ureteral orifice was then identified and the hybrid guidewire passed up and under the left collecting system under fluoroscopic visualization. Once in good position the stent was passed over the wire and into the collecting system where was positioned in the renal pelvis under fluoroscopic visualization and in the bladder under direct vision grasping forceps was inserted nylon harness was removed after the wire had been removed. Fluoroscopy was again used to confirm that the stent was in good position in the renal pelvis right and left. Who was in good position under direct vision in the bladder. With the stents in good position the bladder was drained the scope was removed the patient was awakened having tolerated the procedure well there were no complications. Patient will be discharged to home to follow up my office in approximately 10-14 days. At that time will make the plan to start to take care of her stones. Complications: none Post-operative Condition: stable Disposition: PACU Plan for aftercare: Discharge to home patient will follow up my office in 10-14 days.
[2023-03-30 10:57] VITALS: BP 129/86; PULSE 85; RESP 13; O2SAT 100
[2023-03-30 11:02] VITALS: BP 152/72; PULSE 79; RESP 15; O2SAT 93
[2023-03-30 11:07] VITALS: BP 123/76; PULSE 78; RESP 14; O2SAT 96
[2023-03-30 11:12] VITALS: BP 140/62; PULSE 79; RESP 16; O2SAT 95
[2023-03-30] MEDS: OXYCODONE/ACETAMINOPHEN 5/325 TABLET 1 TAB PO (11:20)
[2023-03-30] MEDS: PHENAZOPYRIDINE 100 MG TABLET 200 MG PO (11:20)
[2023-03-30] MEDS: OXYBUTYNIN 5 MG TABLET PO (11:20)
[2023-03-30 11:22] VITALS: BP 144/83; PULSE 74; RESP 18; O2SAT 94
== END 2023-03-30 11:53 | disposition home or self-care (01) ==
PROVIDERS: PCP Family Medicine; Referring Provider Urology; Visit Provider Urology
PROC: (CPT 52332; principal; 2023-03-30 10:45)
DX: N20.1 Calculus of ureter (principal)
CPT/HCPCS: 52332; 76000; J0690; J1100; J2405; J2704; J3010

== ENCOUNTER → 2023-04-16 15:06 | Outpatient (CLI) | payer MEDICARE, OTHER, SELFPAY ==
[2023-04-02 14:29] VITALS: BMI 35.6
--- NOTE | 2023-04-16 15:07 | DI.RAD.S_ITS ---
PROCEDURE: XR KUB INDICATIONS: Follow-up kidney stones TECHNIQUE: One view of the abdomen acquired. COMPARISON: [facility], CT, CT KIDNEY URETER BLADDER (KUB), 03/12/2023, 22:36. FINDINGS: Surgical changes and devices: Bilateral ureteral stents are seen. Gastric lap band is seen. Bowel: Bowel gas pattern is nonobstructive. Moderate fecal stasis throughout the colon is seen. No gross pneumoperitoneum. Soft tissues: CT findings of bilateral renal calculi are not definitively seen on this study. Visualized solid organ contours appear normal in size. Bones: No suspicious bony lesions. IMPRESSION: Bilateral ureteral stents in place. No definite renal stones are seen on the current study. Moderate constipation. No gross free air. Dictated by: Matt Villanueva M.D. on 04/16/2023 at 16:50 Approved by: Matt Villanueva M.D. on 04/16/2023 at 16:52
== END ==
PROVIDERS: PCP Family Medicine; Referring Provider Urology; Visit Provider Urology
DX: N20.1 Calculus of ureter (principal); K59.00 Constipation, unspecified; E89.2 Postprocedural hypoparathyroidism; N95.2 Postmenopausal atrophic vaginitis; Z96.0 Presence of urogenital implants; Z87.448 Personal history of other diseases of urinary system
CPT/HCPCS: 74018; 99213

== ENCOUNTER → 2023-04-28 15:33 | Outpatient (CLI) | payer MEDICARE, OTHER, SELFPAY ==
[2023-04-02 14:29] VITALS: BMI 35.6
--- NOTE | 2023-04-28 15:34 | DI.RAD.S_ITS ---
PROCEDURE: XR KUB INDICATIONS: kidney stones TECHNIQUE: One view of the abdomen acquired. COMPARISON: [facility], CT, CT KIDNEY URETER BLADDER (KUB), 03/12/2023, 22:36. [facility], CR, XR KUB, 04/16/2023, 15:16. FINDINGS: Surgical changes and devices: Bilateral ureteral stents are present, demonstrating stable and appropriate positions. There is gastric banding. Bowel: Proximal small bowel loops are prominent measuring 2.8 cm in diameter. There is abundant distal small bowel gas. Moderate colonic stool in proximal colon. Soft tissues: UPJ stones seen on the comparison CT are not well seen on this exam. Question right distal ureteral stones versus artifact. Visualized solid organ contours appear normal in size. Bones: No suspicious bony lesions. IMPRESSION: 1. Bilateral ureteral stents are present, demonstrating stable and probably positions. Bilateral renal stones seen on comparison CT are not well seen on this radiograph. 2. Gastric banding. Dictated by: Rudolph Noel M.D. on 04/28/2023 at 16:53 Approved by: Rudolph Noel M.D. on 04/28/2023 at 16:57
== END ==
PROVIDERS: PCP Family Medicine; Referring Provider Urology; Visit Provider Urology
DX: Z96.0 Presence of urogenital implants; N20.2 Calculus of kidney with calculus of ureter; Z98.84 Bariatric surgery status
CPT/HCPCS: 74018

== ENCOUNTER → 2023-05-10 12:41 | Outpatient (CLI) | payer MEDICARE, OTHER, SELFPAY ==
[2023-04-02 14:29] VITALS: BMI 35.6
--- NOTE | 2023-05-10 12:42 | DI.CT.S_ITS ---
PROCEDURE: CT KIDNEY URETER BLADDER (KUB) INDICATIONS: kidney stones TECHNIQUE: Axial sections were acquired from the lung bases to the pubic symphysis. Coronal and sagittal reformats were performed. For radiation dose reduction, the following was used: automated exposure control, adjustment of mA and/or kV according to patient size. COMPARISON: [facility], CT, CT KIDNEY URETER BLADDER (KUB), 03/12/2023, 22:36. FINDINGS: Image quality: Excellent. Lung bases: Unremarkable. Heart: No significant findings. URINARY: Right Kidney: There is a nonobstructing 7 mm calculus in the lower pole of the right kidney which measures 791 Hounsfield units in density. No hydronephrosis. Right Ureter: There is a right double-J ureteral stent present extending from the renal pelvis to the bladder. Left Kidney: There is a 9 mm nonobstructing calculus within the left renal pelvis which measures 1095 Hounsfield units in density. 2 and 3 mm punctate nonobstructing calculi are also present within the left lower pole. Left Ureter: There is a left double-J ureteral stent which extends from the proximal left renal collecting system into the bladder. Bladder: Normal wall thickness. No stones. ABDOMEN: Liver: Unremarkable. Gallbladder: Surgically absent. Biliary ducts: Unremarkable. Pancreas: Unremarkable. Spleen: Unremarkable. Adrenal Glands: Unremarkable. Stomach and Bowel: Laparoscopic band is noted at the gastric cardia. There is a small hiatal hernia. There is a fluid and gas filled duodenal diverticulum. The appendix is thin walled and gas filled. There are scattered sigmoid diverticula. No evidence for diverticulitis. Peritoneum: No abnormal intraperitoneal fluid. No free air. Ventral Wall: No hernia. Abdominal Nodes: No enlarged retroperitoneal or mesenteric lymph nodes. Vessels: Aorta and inferior vena cava are normal in size. PELVIS: Pelvic Organs: Unremarkable. Pelvic Nodes: Unremarkable. Miscellaneous: No inguinal hernias are seen. Bones: Unremarkable. IMPRESSION: 1. Bilateral nonobstructing nephrolithiasis. 2. Bilateral double-J ureteral stents. 3. Normal appendix. Diverticulosis. No acute diverticulitis. Dictated by: Sarita Reynolds M.D. on 05/10/2023 at 13:34 Approved by: Sarita Reynolds M.D. on 05/10/2023 at 13:53
== END ==
PROVIDERS: PCP Family Medicine; Referring Provider Urology; Visit Provider Urology
DX: N20.1 Calculus of ureter (principal); K57.90 Diverticulosis of intestine, part unspecified, without perforation or abscess without bleeding
CPT/HCPCS: 74176

== ENCOUNTER → 2023-05-12 08:17 | Outpatient (CLI) | payer MEDICARE, OTHER, SELFPAY ==
[2023-04-02 14:29] VITALS: BMI 35.6
== END ==
PROVIDERS: PCP Family Medicine; Visit Provider Urology
DX: Z96.0 Presence of urogenital implants (principal); N20.1 Calculus of ureter; N20.0 Calculus of kidney; R31.9 Hematuria, unspecified; Z87.448 Personal history of other diseases of urinary system; E89.2 Postprocedural hypoparathyroidism; Z68.36 Body mass index [BMI] 36.0-36.9, adult
CPT/HCPCS: 81002; 87086; 99214

== ENCOUNTER 2023-05-18 10:58 | Day surgery (SDC) | payer MEDICARE, OTHER, SELFPAY ==
[2023-04-02 14:29] VITALS: BMI 35.6
[2023-05-17 10:55] VITALS: BMI 36.3
[2023-05-18 11:35] VITALS: BMI 36.3
[2023-05-18] MEDS: LACTATED RINGERS 1,000 ML 120 ML IV (11:44)
[2023-05-18 11:49] VITALS: BP 112/68; PULSE 82; RESP 16; TEMP 37; O2SAT 91
--- NOTE | 2023-05-18 12:14 | PM.PREOP ---
Pre-operative Note COVID-19 COVID-19 status: Not tested Interval Note History & Physical reviewed/Exam performed by Physician: Yes Changes to H&P: No
[2023-05-18] MEDS: CEFAZOLIN 2 GM/100 ML PREMIX 100 ML IV (12:40)
--- NOTE | 2023-05-18 12:52 | SUR.OPER ---
Lithotomy on padded OR bed, head on pillow, arms secured on padded arm boards at <90 degrees abduction. Legs secured in padded yellow fins stirrups.
--- NOTE | 2023-05-18 13:49 | P.OP_ITS ---
Procedure & Clinicians Procedure: Left ureteroscopy with laser lithotripsy and basket extraction of stone fragments, stent removal, stent replacement left side Same procedure as scheduled: Yes Indications: This 63-year-old female presented with complaints of bilateral urinary calculi and had stents placed. The does this settle from that and she presents for treatment of her left-sided stones. Interestingly the patient had a KUB in preparation for this in the stones appeared to be radiolucent a repeat CT scan revealed the stones to 2 not have passed and raises the suspicion that they may be uric acid stones. Surgeon: Kris Brannon Click Yes if Unassisted: Yes Anesthesia Type: General Operative Notes Findings: Findings: External genitalia and urethral meatus normal urethra is normal along its length. The urine is Pyridium stained the bladder mucosa is normal. Right and left ureteral stents in normal position with minimal bullous edema around each ureteral orifice. At left ureteroscopy the the ureter had changes consistent with the stent being in place. The large stone was noted in the renal pelvis and was fragmented and dusted. With the laser larger fragments were removed. It did appear that no large fragments remained however the urine was quite hazy from the ?dusting?. The renal pelvis otherwise was unremarkable without tumor or other abnormality. The original stent was removed in its entirety with ease and a new 7 Serbian by multi length stent was placed in the left collecting system without a string. There were no other abnormalities or significant findings noted. Closure Type: not applicable Specimen(s): other (Left renal calculus stone fragments sent for compositional analysis.) Prosthetic devices, grafts, tissues, transplants, or devices: Seven Serbian by multi length stent left collecting system no string Estimated Blood Loss (mL): 5 Blood products transfused: none Procedure in detail: Procedure in detail: After informed consent was obtained, the patient was identified and brought to the operating room where she was placed in supine position on the table. Once on the table the patient had anesthesia induced and maintained. Ensuring an adequate level of anesthesia the patient was transitioned to the lithotomy position where she was prepped, draped and prep ared for Transurethral procedure. After prepping, draping, ensuring an adequate level of anesthesia and time-out a 22 Serbian cystoscope was passed through the urethra and in the bladder where cystoscopy was performed. The grasping forceps was then inserted and the end of the left stent was brought out the urethral meatus. A hybrid guidewire was then passed through the stent up into the collecting system confirmed by fluoroscopy. The stent was then ?backed out. The wire was reserved as a safety wire. The cystoscope was once again reinserted and a 2nd wire was passed up in the collecting system. The bladder was drained the cystoscope was removed and the 2nd wire was reserved as a working wire. Ureteral access sheath was then easily passed over the wire in a coaxial fashion persistent with its distal tip in the proximal ureter. The ureteral scope was then inserted and sequential nephroscopy performed. The stone was identified in the renal pelvis and laser fiber inserted laser energy applied to the stone fragmenting it and dusting it. When it appeared completely fragmented the laser fiber was placed on standby and secured. An Nitinol basket was then passed through the ureteral scope and used to basket the larger fragments. These were collected and sent for compositional analysis. With the larger fragments removed the basket was removed. And ureteroscopy was performed as the scope and ureteral access sheath were backed out together visualizing the entire ureter which was without significant abnormality. With this done the safety wire was backloaded through the cystoscope the cystoscope inserted and a new stent passed over the wire positioned in the renal pelvis under fluoroscopic visualization of the bladder under direct vision. Grasping forceps was inserted than the nylon harness removed leaving the stent in good position. At this point the bladder was drained the patient was awakened taken to the postanesthesia care unit having tolerated procedure well there were no complications and she is to follow up in my office in 10-14 days. Complications: none Post-operative Condition: stable Disposition: PACU Plan for aftercare: Follow-up my office 10-14 days patient is to strain her urine and save any fragm ents that she collects.
[2023-05-18 13:50] VITALS: BP 161/91; PULSE 98; RESP 12; TEMP 36.4; O2SAT 94
[2023-05-18 13:55] VITALS: BP 166/95; PULSE 97; RESP 14; TEMP 36.3; O2SAT 95
[2023-05-18 14:01] VITALS: BP 147/101; PULSE 94; RESP 13; TEMP 36.4; O2SAT 95
[2023-05-18 14:07] VITALS: BP 151/98; PULSE 94; RESP 18; TEMP 36.3; O2SAT 95
[2023-05-18] MEDS: ACETAMINOPHEN 325 MG TABLET 650 MG PO (14:18)
[2023-05-18] MEDS: OXYCODONE IR 5 MG TABLET PO (14:18)
[2023-05-18] MEDS: PHENAZOPYRIDINE 100 MG TABLET 200 MG PO (14:18)
[2023-05-25 13:55] LABS: Ca oxalate dihydrate 60 % (.); Ca oxalate monohydr 40 % (.); Size 4x3 mm (.)
== END 2023-05-18 14:38 | disposition home or self-care (01) ==
PROVIDERS: PCP Family Medicine; Referring Provider Urology; Visit Provider Urology
PROC: (CPT 52356; principal; 2023-05-18 13:30)
DX: N20.1 Calculus of ureter (principal)
CPT/HCPCS: 52356; 76000; 82365; 82962; J0690; J1100; J2250; J2405; J2704; J3010

== ENCOUNTER → 2023-05-28 13:56 | Outpatient (CLI) | payer MEDICARE, OTHER, SELFPAY ==
[2023-04-02 14:29] VITALS: BMI 35.6
== END ==
PROVIDERS: PCP Family Medicine; Visit Provider Urology
DX: N20.0 Calculus of kidney (principal); E89.2 Postprocedural hypoparathyroidism; Z96.0 Presence of urogenital implants; Z87.448 Personal history of other diseases of urinary system
CPT/HCPCS: 87086; 99214

== ENCOUNTER → 2023-06-03 15:51 | Outpatient (CLI) | payer MEDICARE, OTHER, SELFPAY ==
[2023-04-02 14:29] VITALS: BMI 35.6
--- NOTE | 2023-06-03 15:52 | DI.CT.S_ITS ---
PROCEDURE: CT ABDOMEN WO CON INDICATIONS: follow-up kidney stones TECHNIQUE: After the administration of oral contrast, 5 mm thick sections acquired from the diaphragms to the iliac crests. 5 mm coronal and sagittal reformats were then performed. For radiation dose reduction, the following was used: automated exposure control, adjustment of mA and/or kV according to patient size. COMPARISON: [facility], CT, CT KIDNEY URETER BLADDER (KUB), 05/10/2023, 13:02. FINDINGS: Image quality: Excellent. Lung bases: Lung bases are clear. Heart size is normal. Liver: No solid mass. Gallbladder and biliary tree: Cholecystectomy. Spleen: Normal size. Pancreas: No ductal dilation. Adrenal glands: No adrenal nodules. Kidneys: Bilateral nephroureteral stents are in place. Interval passage of the 1.2 cm stone in the left renal pelvis. Stable bilateral nonobstructing nephrolithiasis, largest measuring 4-5 mm in the inferior calyx of both kidneys. No hydronephrosis. Peritoneum and bowel: Bowel loops demonstrate normal wall thickness and caliber. No free fluid or air. Gastric band surgery. Nodes and vessels: No retroperitoneal or mesenteric adenopathy by size criteria. Aorta and inferior vena cava are normal in size. Bones: No suspicious bony lesions. No vertebral body compression fractures. Degenerative disc disease. Miscellaneous: No ventral hernias. IMPRESSION: Bilateral nephroureteral stents are in place. Interval passage of the 1.2 cm stone in the left renal pelvis. Stable bilateral nonobstructing nephrolithiasis, largest measuring 4-5 mm in the inferior calyx of both kidneys. No hydronephrosis. Dictated by: Jovanni Hale M.D. on 06/03/2023 at 17:12 Approved by: Jovanni Hale M.D. on 06/03/2023 at 17:14
== END ==
PROVIDERS: PCP Family Medicine; Referring Provider Urology; Visit Provider Urology
DX: N20.0 Calculus of kidney (principal); Z96.0 Presence of urogenital implants
CPT/HCPCS: 74150

== ENCOUNTER 2023-06-07 07:59 | Day surgery (SDC) | payer MEDICARE, OTHER, SELFPAY ==
[2023-04-02 14:29] VITALS: BMI 35.6
[2023-06-01 14:38] VITALS: BMI 36.3
--- NOTE | 2023-06-07 08:44 | SUR.PREOP ---
Patient's O2 sat 85%RA. Patient reported some increased shortness of breath today. Ingrid LEBRON notified and evaluated patient. Surgery cancelled per provider and was taken to the ER on 2 L O2. Report given to BIOINFORMATICIAN. Belongings with patient. Patient's spouse, Huey, updated by phone.
== END 2023-06-07 08:00 | disposition home or self-care (01) ==
LOC: OR 08:01
PROVIDERS: PCP Family Medicine; Referring Provider Urology; Visit Provider Urology
CPT/HCPCS: J2250; J3010

== ENCOUNTER 2023-06-07 08:36 | Emergency (ER) | payer MEDICARE, OTHER, SELFPAY ==
[2023-04-02 14:29] VITALS: BMI 35.6
[2023-06-07] VITALS (14 sets, daily range): BP systolic 113–149; BP diastolic 73–87; PULSE 78–119; RESP 16–20; TEMP 36.6; O2SAT 86–96; BMI 36.3
--- NOTE | 2023-06-07 08:49 | ED.SOB ---
HPI - SOB/Dyspnea General Chief Complaint: Shortness of Breath/Dyspnea Stated Complaint: sent from OR Time Seen by Provider: 06/07/23 08:40 Source: patient, RN notes reviewed and old records reviewed Mode of arrival: Wheelchair Limitations: no limitations History of Present Illness HPI Narrative: 63-year-old female with history of COPD not on home O2, chronic pain, hypothyroidism, dyslipidemia, recurrent kidney stones with complaint of low O2 sat in the OR. Patient had presented today for removal of kidney stones you are having lithotripsy recently. Patient was noted to be 86-85% with a good plus on room air. Patient has never required home O2. Patient states she normally runs 92%. She is noted a little bit more shortness of breath with exertion but she states no real shortness of breath. She denies chest pain or pressure. No fevers. No cold cough or congestive symptoms. No nausea no vomiting. No diarrhea constipation, no new urinary symptoms. She noticed some swelling in her ankles in January but states minimal to no swelling recently. She did note a little bit of left leg swelling last month. Patient states she continues to smoke about 10 cigarettes daily, denies alcohol, denies recreational drugs. Has allergy to epinephrine, bupropion, pregabalin and ibuprofen. She notes she uses Combivent Advair, Lexapro, meloxicam Myrbetriq, levothyroxine, oxycodone and morphine daily, simvastatin. She denies any hypertension or dyslipidemia. Related Data Home Medications Medication Instructions Recorded Confirmed cholecalciferol (vitamin D3) 25 1,000 unit PO DAILY 11/30/18 06/07/23 mcg (1,000 unit) capsule morphine 15 mg tablet,extended 15 mg PO QID 11/14/20 06/07/23 release oxycodone 15 mg tablet 15 mg PO QID 11/14/20 06/07/23 baclofen 10 mg tablet 10 mg PO BEDTIME PRN Muscle Spasm 03/29/23 06/07/23 doxepin 10 mg capsule 10 mg PO DAILY 05/18/23 06/07/23 fluticasone propionate 115 2 puff inhalation DAILY 05/18/23 06/07/23 mcg-salmeterol 21 mcg/actuation HFA inhaler (Advair HFA) mirabegron 25 mg tablet,extended 50 mg PO BEDTIME 05/18/23 06/07/23 release 24 hr (Myrbetriq) simvastatin 40 mg tablet 40 mg PO BEDTIME 05/18/23 06/07/23 Previous Rx's Medication Instructions Recorded escitalopram oxalate 20 mg tablet 20 mg PO DAILY #90 tabs 09/14/22 ipratropium 20 mcg-albuterol 100 1 puff inhalation Q4H PRN 10/13/22 mcg/actuation mist for inhalation shortness of breath or wheezing #4 (Combivent Respimat) grams levothyroxine 88 mcg tablet 88 mcg PO DAILY #90 tabs 02/15/23 meloxicam 7.5 mg tablet 7.5 mg PO DAILY #90 tabs 04/21/23 oxybutynin chloride 5 mg tablet 5 mg PO BID-TID PRN bladder spasms 05/07/23 #30 tabs phenazopyridine 200 mg tablet 200 mg PO TID PRN pain bladder 05/18/23 (Pyridium) irritation #30 tabs prednisone 10 mg tablets in a dose See Rx Instructions PO .COMPLEX 06/07/23 pack #21 ea Allergies Allergy/AdvReac Type Severity Reaction Status Date / Time epinephrine [EPINEPHRINE] Allergy Severe TROUBLE Verified 06/07/23 08:14 BREATHING - HAD ASTHMA A CHILD bupropion AdvReac Severe Very flat Verified 06/07/23 08:14 affect pregabalin [From LYRICA] AdvReac Intermediate SOBBING & Verified 06/07/23 08:14 CONFUSION NOT A DRUG I EVER WANT TO TAKE AGAIN ibuprofen AdvReac Mild Abdominal Verified 06/07/23 08:14 Pain Review of Systems Review of Systems ROS Unobtainable: All systems reviewed & are unremarkable except as noted in HPI and below Patient History Medical History Bilateral kidney stones Retained ureteral stent History of pyelonephritis Bilateral ureteral calculi Recurrent kidney stones Kidney stones Hematuria (09/2020) Prediabetes (2009) Tendinitis, de Quervain's (04/2019) Rheumatoid arthritis (01/2016) Osteopenia (2016) Depression (Unknown) Fibromyalgia (2013) Chronic back pain (2001) Endometriosis (1994) Urinary incontinence (2013) Hypothyroidism (Unknown) Hyperlipemia (~1994) Surgical History History of ureteroscopy (05/18/23) Hx of cystoscopy (03/30/23) History of parathyroidectomy Status post parathyroidectomy (09/02/16) Status post cholecystectomy Status post hysterectomy Status post laparoscopic supracervical hysterectomy Family History Grandmother Heart disease Mother Lung cancer Social History household members: spouse Smoking Status: Current every day smoker Tobacco: How many years used: 49 quit status: not considering quitting second hand exposure: No alcohol intake: former substance use type: does not use Smoking Status: Current every day smoker alcohol intake frequency: 0-2 drinks per day Substance Use Type: does not use Exam Narrative Exam Narrative: GEN: Obese, well appearing female, alert and oriented x 3, patient appears to be in mild distress. HEENT: Atraumatic, pupils are equal round reactive to light, extraocular movements are intact, nares are clear, Tthere is no conjunctival pallor. HEART: Regular rate and rhythm without murmur, clicks, rubs. Pulses are equal in upper and lower extremities. No edema bilateral lower extremities. No JVD noted. LUNGS:Lungs clear to auscultation, slightly decreased bilaterally, no wheezes, rales, crackles, chest moves symmetrically, no tachypnea, no accessory muscle use. Speaks in full sentences. ABD:bowel sounds normal, soft, non-tender, no guarding, rebound, rigidity, no masses noted, no hepatosplenomegaly :No CVA tenderness. MSCL: Non-tender, no muscle atrophy, muscles strength 5/5 upper and lower extremities, full range of motion, normal gait NEURO:CN 2-12 intact, sensation normal SKIN: No rash, erythema or other skin changes noted. Initial Vital Signs Initial Vital Signs: Vital Signs Pulse Rate 117 H 06/07/23 08:42 Pulse Oximetry 91 06/07/23 08:42 Oxygen Delivery Method Nasal Cannula 06/07/23 08:42 Oxygen Flow Rate 2 06/07/23 08:42 Course Orders Ordered: ED Orders 06/07/23 10:06 CT angio chest PE protocol Stat Discontinued Medications Albuterol/Ipratropium (Albuterol/Ipratropium 3 Ml Ampul) 3 ml INH NOW ONE Stop: 06/07/23 08:49 Last Admin: 06/07/23 08:51 Dose: 3 ml Documented By: PAOLA Methylprednisolone (Methylprednisolone 125 Mg/2 Ml Vial) 125 mg IV NOW ONE Stop: 06/07/23 08:49 Last Admin: 06/07/23 09:31 Dose: Not Given Documented By: KATE Vital Signs Vital signs: Vital Signs - 8 hr 06/07/23 10:43 06/07/23 10:43 06/07/23 11:00 Pulse Rate 94 H Blood Pressure 149/83 H 113/86 Pulse Oximetry 96 Oxygen Delivery Method Oxygen Flow Rate 06/07/23 11:00 06/07/23 11:30 06/07/23 11:30 Pulse Rate 85 83 Blood Pressure 125/74 Pulse Oximetry 93 91 Oxygen Delivery Method Oxygen Flow Rate 06/07/23 12:00 06/07/23 12:30 06/07/23 13:00 Pulse Rate 78 85 83 Blood Pressure Pulse Oximetry 91 91 92 Oxygen Delivery Method Nasal Cannula Nasal Cannula Oxygen Flow Rate 2 2 MDM - SOB/Dyspnea Lab Data 06/07/23 09:15 06/07/23 09:15 Labs: Lab Results 06/07/23 06/07/23 Range/Units 08:54 09:15 WBC 8.7 (4.5-11.0) X10^3/uL RBC 4.45 (4.0-5.2) X10^6/uL Hgb 12.9 (12.0-16.0) g/dL Hct 39.6 (36-46) % MCV 88.9 (80-100) fL MCH 29.0 (26-34) PG MCHC 32.6 (30-36) % RDW 14.8 (11.6-14.8) % Plt Count 273 (150-400) X10^3/uL Neut % (Auto) 53.7 (50-75) % Lymph % (Auto) 30.8 (25-40) % [place] % (Auto) 9.8 (3-14) % Eos % (Auto) 4.9 H (2-4) % Baso % (Auto) 0.8 (0-2) % Neut # (Auto) 4700 (7544-1290) /uL Lymph # (Auto) 2700 (9311-5779) /uL [place] # (Auto) 900 (0-900) /uL Eos # (Auto) 400 (0-450) /uL Baso # (Auto) 100 (0-100) /uL PT 11.5 (10.1-12.7) SECONDS INR 1.0 (0.9-1.3) D-Dimer 1084 H (<500) ng/ml Sodium 137 (137-145) mmol/L Potassium 3.9 (3.4-5.1) mmol/L Chloride 104 (98-107) mmol/L Carbon Dioxide 31 (22-32) mmol/L BUN 12 (7-17) mg/dL Creatinine 0.68 (0.52-1.04) mg/dL Estimated GFR > 60 (>60) mL/min BUN/Creatinine Ratio 17.6 (6-22) Glucose 135 H (80-110) mg/dL Lactate 1.2 (0.7-2.1) mmol/L Calcium 8.9 (8.4-10.2) mg/dL Total Bilirubin 0.7 (0.2-1.3) mg/dL AST 23 (14-36) IU/L ALT 21 (<35) IU/L Alkaline Phosphatase 68 (38-126) U/L Total Creatine Kinase 53 (30-135) U/L Troponin I < 0.012 (0.01-0.034) ng/mL NT-Pro-B Natriuret Pep 50 (<125) pg/mL Total Protein 6.2 L (6.3-8.2) g/dL Albumin 3.7 (3.5-5.0) g/dL Globulin 2.5 (1.7-4.1) g/dL Albumin/Globulin Ratio 1.5 (1.0-2.8) Ur Bilirubin Confirm Negative (Negative) Urine RBC 10-30/hpf H (0-5/HPF) Urine WBC 5-10/hpf H (0-5/HPF) Ur Squamous Epith Cells 5-10 /hpf H (0-5/HPF) Urine Bacteria None seen (None) Ur Culture Indicated? Specimen cultured Chlamy pneumoniae PCR Not detected (Not Detect) Adenovirus (PCR) Not detected (Not Detect) B.parapertussis DNA PCR Not detected (Not Detecte) Coronavirus OC43 (PCR) Not detected (Not Detect) Coronavirus HKU1 (PCR) Not detected (Not Detect) Coronavirus 229E (PCR) Not detected (Not Detect) SARS-CoV-2 (PCR) Not detected (Not Detecte) Coronavirus NL63 (PCR) Not detected (Not Detect) Human Metapneumovir PCR Not detected (Not Detect) Influenza Type A (PCR) Not detected (Not Detect) Influenza Type B (PCR) Not detected (Not Detect) M. pneumoniae (PCR) Not detected (Not Detect) Parainfluenza 1 (PCR) Not detected (Not Detect) Parainfluenza 2 (PCR) Not detected (Not Detect) Parainfluenza 3 (PCR) Not detected (Not Detect) Parainfluenza 4 (PCR) Not detected (Not Detect) RSV (PCR) Not detected (Not Detect) Entero/Rhino (PCR) Not detected (Not Detect) Urine Dip Bedside Urine Glucose Negative Bedside Urine Bilirubin + 1 Bedside Urine Ketone - Negative Urine Specific [place] 1.015 Bedside Urine Occult Blood +++ Bedside Urine pH 6.0 Bedside Urine Protein ++ 100 Bedside Urine Urobilinogen 1+ 2mg Bedside Urine Nitrite + Positive Bedside Urine Leukocytes +++ 500 Esterase Imaging Data Chest x-ray: Radiologist's Impression: Close Chest X-Ray (Signed) Memo Gilliam - 06/07/[address] (Signed) Jovanni Hale - 06/03/23 Abdomen/Pelvis CT (Signed) Sarita Reynolds - 05/10/23 KUB X-Ray (Signed) Rudolph Noel - 04/28/23 KUB X-Ray (Signed) Matt Villanueva - 04/16/23 Abdomen/Pelvis CT (Signed) Myron Patel - 03/12/23 Mammogram Screening (Signed) Ed Torres - 05/01/22 Renal Ultrasound (Signed) Jasmin Phillip - 02/12/21 Mammogram Result 07/23/20 Wrist X-Ray (Signed) Matt Villanueva - 11/10/19 Thoracic Spine X-Ray (Signed) Miller Gonzalez - 07/03/19 Shoulder X-Ray (Signed) Miller Gonzalez - 07/03/19 Shoulder X-Ray (Signed) Miller Gonzalez - 07/03/19 Sacroiliac Joint X-Ray (Signed) Miller Gonzalez - 07/03/19 Lumbar Spine X-Ray (Signed) Miller Gonzalez - 07/03/19 Cervical Spine MRI (Signed) Nitin Sotomayor - 03/14/19 Abdomen/Pelvis CT (Signed) Ed Torres - 02/27/19 Telemetry Strips 09/14/18 Abdomen/Pelvis CT (Signed) Nitin Sotomayor - 09/14/18 Chest X-Ray (Signed) Nitin Sotomayor - 09/14/18 Launch?Image [address] [address] XRay Report Signed Patient: Doreen Bond MR#: [id number] : 1960 Acct:[id number] Age/Sex: 63 / F Date of Service: 06/07/23 Loc: ED Accession Number: [id number] Procedure: XR chest 1V Ordering Provider: Minerva Gordillo D.O. PROCEDURE: XR CHEST 1V INDICATIONS: Shortness of breath TECHNIQUE: One view of the chest was acquired. COMPARISON: [facility] , XR CHEST 1V, 09/14/2018, 1:48. FINDINGS: Surgical changes and devices: None. Lungs and pleura: Lungs are clear. No pleural effusions or pneumothorax. Mediastinum: Mediastinal contours appear normal. Heart size is normal. Bones and chest wall: No suspicious bony lesions. Overlying soft tissues appear unremarkable. IMPRESSION: No evidence acute pulmonary process. Dictated by: Memo Gilliam M.D. on 06/07/2023 at 9:49 Approved by: Memo Gilliam M.D. on 06/07/2023 at 9:49 CT scan - chest: Radiologist's Impression: [address] [address] [address] Scan Report? Signed Patient: Doreen Bond MR#: [id number] : 1960 Acct:[id number] Age/Sex: 63 / F Date of Service: 06/07/23 Loc: ED Accession Number: [id number]? ? Procedure: CT angio chest PE protocol Ordering Provider: Minerva Gordillo D.O. PROCEDURE:? CT ANGIO CHEST PE PROTOCOL ? INDICATIONS:? low O2 sat, elevated dimer, hx copd ? TECHNIQUE:?? After the administration of intravenous contrast, 2 mm thick sections acquired from the? pulmonary apices to the posterior costophrenic angles.? 3-dimensional maximum intensity? projection (MIP) coronal and sagittal reformats were then acquired through the thorax.?? For radiation dose reduction, the following was used:? automated exposure control,? adjustment of mA and/or kV according to patient size.?? ? COMPARISON:? [facility], CR, XR CHEST 1V, 06/07/2023, 9:10. ? FINDINGS:?? Image quality:? Good ? Lungs and pleura:? Mild peripheral reticulation.? Scattered mild scarring/atelectasis.?? No dense consolidation or drainable pleural effusion. ? Mediastinum, heart, and esophagus:? No pulmonary embolism identified no aortic? dissection.? There are small coronary calcifications.? No pathologic lymph nodes by size? criteria. ? Chest wall and thyroid:? Breast implants. ? Upper abdomen:? Gastric band in place.? No gross abnormality. ? Bones:? There are degenerative changes. ? IMPRESSION:? No pulmonary embolism identified.? No dense airspace disease or pleural? effusions. ? Other findings as above. ? ? Dictated by: Naga Pretty M.D. on 06/07/2023 at 11:07? ? ? Approved by: Naga Pretty M.D. on 06/07/2023 at 11:11? ? ECG Data Attestation: I personally reviewed and interpreted this ECG as follows: Prior ECG tracings: available for review Interpretation: Sinus rhythm rate of 98 OK 174 QRS of 90 QTC of 449. No acute ST elevation depression noted. Patient has prior from 10/11/2018 which appears similar. MDM Narrative Medical decision making narrative: 63-year-old female with low O2 sat in the OR. She is 85-86% with a good plus in the room when we put her on 1 or 2 L she immediately increases to 91_92%. She notes little bit of shortness of breath increased with exertion but states it has been very mild. She really does not have any other symptoms that she is describing. Patient does have COPD on exam slightly decreased but does have air movement bilaterally without wheezes crackles or other changes. She does not appear to be in any distress. We will get chest x-ray EKG labs to evaluate for cardiac versus pulmonary sources, respiratory panel and D-dimer as patient noted a little bit of left leg swelling last month. Patient's workup including chest x-ray shows no acute change, CBC is negative, patient does have a positive D-dimer elevated at 1084, outside age adjusted cut off. Patient's CMP is appropriate lactate negative LFTs are negative troponin is negative with a BNP of 50. Patient has not had any chest pain or pressure or significant shortness of breath so troponin was not repeated. Patient's EKG does not show acute changes. Respiratory panel is negative. Patient did receive a DuoNeb had some increased aeration. She did not wish any steroids. Discussed with patient recommend CT angio based on elevated dimer. CT PE study is negative. Dense airspace disease or pleural effusions, gastric band is in place mild peripheral reticulation scattered mild scarring/atelectasis. Consistent with COPD. Patient received neb treatment had minimal change on examination. Patient has not had increasing O2 requirements. No Other clear source appears to be progression of her disease. she does note that she has not seen a physician and had her oxygen checked in some time. Attempted to wean down O2 patient drops to 85/86% without any O2 quite quickly. Discussed with patient will try to set up with home O2 suspect that she is longstanding COPD not finding any other clear source. Patient is pretty adamant that she does not wish to spend the night in the hospital. RT was able to pick set up patient with home O2. We did discuss she should not smoke and use home O2. She does not need follow-up with her primary care and was also given contact information for pulmonology who is now here locally. Discussed all the findings here for follow-up all questions answered. Discharge Plan Departure Patient Disposition: Home Clinical Impression: Hypoxia, Chronic obstructive pulmonary disease Instructions: DI for Chronic Obstructive Pulmonary Disease Activity Restrictions/Additional Instructions: Follow-up with your physician, Dr. Roberts. They may discuss referring you for pulmonology. Your oxygen is persistently in the 86 range here in the department, this may have been a longstanding issue secondary to your COPD. In his recommended that you be kept overnight until home O2 can be arranged it is in process of being arranged currently. I would recommend stopping using any tobacco products. If you do continue to smoke do not smoke while wearing oxygen because it is flammable. Steroids can sometimes be helpful I would recommend taking steroids until completed to see if this makes any major change. Continue your inhalers daily. Prescription for prednisone was printed. Please return for new chest pain, increasing shortness of breath, lightheadedness or passing out, increasing swelling of her extremities, sweatiness, nausea vomiting or other new or concerning changes. Prescriptions: New prednisone 10 mg tablets,dose pack See Rx Instructions .ROUTE .COMPLEX Qty: 21 0RF Rx Instructions: Take 6 tablets p.o. x1 day, then 5 tablets p.o. x1 day, then 4 tablets p.o. x1 day, then 3 tablets p.o. x1 day, then 2 tablets it, then 1 tablet p.o. x1 No Action escitalopram oxalate 20 mg tablet 20 mg PO DAILY Qty: 90 3RF Combivent Respimat 20-100 mcg/actuation mist 1 puff inhalation Q4H PRN (Reason: shortness of breath or wheezing) Qty: 4 4RF meloxicam 7.5 mg tablet 7.5 mg PO DAILY Qty: 90 1RF oxybutynin chloride 5 mg tablet 5 mg PO BID-TID PRN (Reason: bladder spasms) Qty: 30 1RF cholecalciferol (vitamin D3) 1,000 unit capsule 1,000 unit PO DAILY oxycodone 15 mg tablet 15 mg PO QID levothyroxine 88 mcg tablet 88 mcg PO DAILY Qty: 90 3RF morphine 15 mg tablet extended release 15 mg PO QID doxepin 10 mg capsule 10 mg PO DAILY Rx Instructions: TAKE 1 OR 2 CAPSULES BY MOUTH AT BEDTIME simvastatin 40 mg tablet 40 mg PO BEDTIME Rx Instructions: TAKE 1 TABLET BY MOUTH AT BEDTIME fluticasone propion-salmeterol [Advair HFA] 115-21 mcg/actuation HFA aerosol inhaler 2 puff inhalation DAILY Rx Instructions: USE 2 INHALATIONS BY MOUTH TWICE DAILY FOR COPD. ADMINISTER WITH SPACER, RINSE MOUTH, AND BRUSH TEETH AFTER USE Myrbetriq 25 mg tablet extended release 24 hr 50 mg PO BEDTIME Rx Instructions: TAKE 1 TABLET BY MOUTH ONCE DAILY phenazopyridine [Pyridium] 200 mg tablet 200 mg PO TID PRN (Reason: pain bladder irritation) Qty: 30 0RF baclofen 10 mg tablet 10 mg PO BEDTIME PRN (Reason: Muscle Spasm) Referrals: Betzaida Mendez MD [Physician] - Jenny Roberts DO [Primary Care Provider] - Stand Alone Forms: Patient Portal/API
[2023-06-07] MEDS: ALBUTEROL/IPRATROPIUM 3 ML AMPUL INH (08:51)
--- NOTE | 2023-06-07 09:32 | PC.NURSE ---
in room to give solu-medrol as ordered; educated provided, pt states I don't even have fluid on my lunds so I just don't think that's indicated or warranted, re-education attempted, pt resistant, pt refused medication. Dr. Gordillo notified. pt on 2L NC 90-92%, airway patient, rr even, unlabored, skin wnl.
[2023-06-07 09:33] LABS: Add Manual Diff / Slide Review NO; Basophils Absolute Auto 100 /uL (0-100); Basophils Percent Auto 0.8 % (0-2); Eosinophils Absolute Auto 400 /uL (0-450); Eosinophils Percent Auto 4.9 % (2-4); Hematocrit 39.6 % (36-46); Hemoglobin 12.9 g/dL (12.0-16.0); Lymphocytes Absolute Auto 2700 /uL (1100-4500); Lymphocytes Percent Auto 30.8 % (25-40); Mean Corpuscular HGB Conc 32.6 % (30-36); Mean Corpuscular Volume 88.9 fL (80-100); Monocytes Absolute Auto 900 /uL (0-900); Monocytes Percent Auto 9.8 % (3-14); Neutrophils Absolute Auto 4700 /uL (1500-7000); Neutrophils Percent Auto 53.7 % (50-75); Platelet Count 273 X10^3/uL (150-400); Red Blood Cell Count 4.45 X10^6/uL (4.0-5.2); Red Cell Distribution Width 14.8 % (11.6-14.8); White Blood Cell Count 8.7 X10^3/uL (4.5-11.0)
[2023-06-07 09:34] LABS: Ictotest Urine Negative (Negative)
[2023-06-07 09:41] LABS: Prothrombin Time 11.5 SECONDS (10.1-12.7)
[2023-06-07 09:42] LABS: Bacteria Urine None Seen; Culture Indicated Urine Specimen Cultured; RBC Urine 10-30/HPF (0-5/HPF); Squamous Epithelial Cell Urine 5-10 /HPF (0-5/HPF); WBC Urine 5-10/HPF (0-5/HPF)
[2023-06-07 09:43] LABS: Creatine Kinase 53 U/L (30-135); Lactate (Lactic Acid) 1.2 mmol/L (0.7-2.1)
[2023-06-07 09:45] LABS: Alanine Aminotransferase 21 IU/L (<35); Albumin 3.7 g/dL (3.5-5.0); Albumin Globulin Ratio 1.5 (1.0-2.8); Alkaline Phosphatase 68 U/L (38-126); Aspartate Aminotransferase 23 IU/L (14-36); BUN Creatinine Ratio 17.6 (6-22); Bilirubin Total 0.7 mg/dL (0.2-1.3); Blood Urea Nitrogen 12 mg/dL (7-17); Calcium 8.9 mg/dL (8.4-10.2); Carbon Dioxide 31 mmol/L (22-32); Chloride 104 mmol/L (98-107); Estimated Glomerular Filt Rate > 60 mL/min (>60); Globulin 2.5 g/dL (1.7-4.1); Glucose 135 mg/dL (80-110); HEMOLYSIS < 15 (0-50); Potassium 3.9 mmol/L (3.4-5.1); Sodium 137 mmol/L (137-145); Total Protein 6.2 g/dL (6.3-8.2)
[2023-06-07 09:51] LABS: D Dimer 1084 ng/ml (<500)
[2023-06-07 09:53] LABS: NT-proBNP (BNP-Adult 18+) 50 pg/mL (<125)
[2023-06-07 09:56] LABS: Troponin I < 0.012 ng/mL (0.01-0.034)
--- NOTE | 2023-06-07 10:06 | DI.CT.S_ITS ---
PROCEDURE: CT ANGIO CHEST PE PROTOCOL INDICATIONS: low O2 sat, elevated dimer, hx copd TECHNIQUE: After the administration of intravenous contrast, 2 mm thick sections acquired from the pulmonary apices to the posterior costophrenic angles. 3-dimensional maximum intensity projection (MIP) coronal and sagittal reformats were then acquired through the thorax. For radiation dose reduction, the following was used: automated exposure control, adjustment of mA and/or kV according to patient size. COMPARISON: [facility], CR, XR CHEST 1V, 06/07/2023, 9:10. FINDINGS: Image quality: Good Lungs and pleura: Mild peripheral reticulation. Scattered mild scarring/atelectasis. No dense consolidation or drainable pleural effusion. Mediastinum, heart, and esophagus: No pulmonary embolism identified no aortic dissection. There are small coronary calcifications. No pathologic lymph nodes by size criteria. Chest wall and thyroid: Breast implants. Upper abdomen: Gastric band in place. No gross abnormality. Bones: There are degenerative changes. IMPRESSION: No pulmonary embolism identified. No dense airspace disease or pleural effusions. Other findings as above. Dictated by: Naga Pretty M.D. on 06/07/2023 at 11:07 Approved by: Naga Pretty M.D. on 06/07/2023 at 11:11
[2023-06-07 10:18] LABS: Adenovirus Not Detected (Not Detect); B. parapertussis Not Detected (Not Detecte); Bordetella pertussis Not Detected (Not Detect); Chlamydophila pneumoniae Not Detected (Not Detect); Coronavirus 229E Not Detected (Not Detect); Coronavirus HKU1 Not Detected (Not Detect); Coronavirus NL 63 Not Detected (Not Detect); Coronavirus OC43 Not Detected (Not Detect); Human Metapneumovirus Not Detected (Not Detect); Human Rhinovirus/Enterovirus Not Detected (Not Detect); Influenza A Not Detected (Not Detect); Influenza B Not Detected (Not Detect); Mycoplasma pneumoniae Not Detected (Not Detect); Parainfluenza Virus 1 Not Detected (Not Detect); Parainfluenza Virus 2 Not Detected (Not Detect); Parainfluenza Virus 3 Not Detected (Not Detect); Parainfluenza Virus 4 Not Detected (Not Detect); Respiratory Syncytial Virus Not Detected (Not Detect); SARS- CoV-2 Not Detected (Not Detecte)
--- NOTE | 2023-06-07 12:05 | PC.NURSE ---
pt 86% on RA trial and 90% on 2L - Dr. Gordillo aware. Rt called for eval and home eval
== END 2023-06-07 13:31 | disposition home or self-care (01) ==
PROVIDERS: Emergency Provider Emergency Medicine; PCP Family Medicine
DX: R09.02 Hypoxemia (principal); J44.9 Chronic obstructive pulmonary disease, unspecified; Z79.899 Other long term (current) drug therapy; Z20.822 Contact with and (suspected) exposure to COVID-19
CPT/HCPCS: 36415; 71045; 71275; 80053; 81003; 81015; 82550; 83605; 83880; 84484; 85025; 85379; 85610; 87086; 87633; 93005; 94640; 99284; Q9967

== ENCOUNTER → 2023-06-25 07:54 | Outpatient (CLI) | payer MEDICARE, OTHER, SELFPAY ==
[2023-04-02 14:29] VITALS: BMI 35.6
--- NOTE | 2023-06-25 | DI.ECHO.S_ITS ---
[facility] +---------+ : : [address] : : : : [id number] : : : : Phone: [phone] Echocardiogram Report + + :Name: KAREN MARIA Study Date: 06/25/2023 Height: 63 in : :[facility] ReadingLocation: Weight: 208 lb : : Gender: Female BSA: 2.0 m2 : :: 1960 Age: 63 yrs BP: 113/74 mmHg: :Reason For Study: CHRONIC RESPRITORY FAILURE : :Ordering Physician: LEVI, : :SLIM Performed By: Miladys Florence : :Referring: SLIM SIMS : + + Interpretation Summary Normal left ventricle size with ejection fraction 65-70%. No significant valvular abnormality. Procedure: A two-dimensional transthoracic echocardiogram with color flow and Doppler was performed. There is no prior echocardiogram noted for this patient. The study quality was technically difficult. The patient was in sinus rhythm with heart rates between 89-101 bpm during the exam. Left Ventricle: The left ventricle is normal in size. The ejection fraction is estimated to be 65-70%. There are no obvious focal wall motion abnormalities noted but poor endocardial definition reduces the sensitivity for the detection of such. Right Ventricle: The right ventricle is normal in size and function. Atria: The left atrial size is normal. Right atrial size is normal. There is no Doppler evidence for an interatrial shunt. Mitral Valve: The mitral valve leaflets appear borderline thickened, but open well. The mitral valve leaflets appear to open well. There is trace mitral regurgitation. Aortic Valve: The aortic valve is grossly normal. The aortic valve opens well. There is no aortic valve stenosis. No aortic regurgitation is present. Tricuspid Valve: The tricuspid valve is normal in structure and function. No tricuspid regurgitation. Pulmonary artery pressures cannot be estimated because of the lack of a measurable TR jet velocity. Pulmonic Valve: The pulmonic valve is not well visualized. There is no pulmonic valvular regurgitation. Great Vessels: The aortic root is normal size. The ascending aorta could not be visualized. The IVC is of normal diameter and collapses greater than 50% with a sniff. This suggests a low right atrial pressure of 3 mm Hg. Pericardium/ Pleura There is no pericardial effusion. There is no pleural effusion. MMode/2D Measurements & Calculations LVIDd: 5.0 cm LVOT diam: 2.1 cm LVIDs: 3.6 cm Ao root diam: 3.4 cm FS: 27.4 % Ao Arch Diam (Prox Trans): 2.5 cm IVSd: 0.70 cm LVPWd: 0.70 cm LV cortez. diameter/BSA (cm/m^2): 2.5 LV sys. diameter/BSA (cm/m^2): 1.8 LA A2 area: 15.6 cm2 RA long axis: 4.1 cm LA A4 area: 11.7 cm2 RA area: 11.8 cm2 LA length (vol): 4.5 cm RA vol: 28.5 ml LA vol: 34.4 ml RA : 14.5 ml/m2 LA vol index: 17.5 ml/m2 IVC diam: 1.2 cm RVD1 (basal): 3.5 cm TAPSE: 2.4 cm Doppler Measurements & Calculations Ao V2 max: 167.7 cm/sec LVOT Max Brian: 131.0 cm/sec Ao V2 mean: 119.9 cm/sec LV V1 max P.9 mmHg Ao max P.2 mmHg LV V1 VTI: 24.3 cm Ao mean P.3 mmHg ANA(I,D): 2.6 cm2 Ao V2 VTI: 32.8 cm ANA(V,D): 2.8 cm2 sev ratio: 0.74 ANA indexed to BSA (cm^2/m^2): 1.3 MV E max brian: 73.8 cm/sec PA V2 max: 91.8 cm/sec MV A max brian: 103.8 cm/sec PA V2 mean: 69.5 cm/sec MV E/A: 0.71 PA mean P.1 mmHg Med Peak E' Brian: 7.9 cm/sec PA pr(Accel): 32.8 mmHg E/E' med: 9.4 Lat Peak E' Brian: 8.5 cm/sec E/E' lat: 8.7 E/e' average: 9.0 MV dec time: 0.22 sec MVA(VTI): 3.4 cm2 MV V2 mean: 77.2 cm/sec SV(LVOT): 85.9 ml MV mean P.8 mmHg MV V2 VTI: 25.5 cm Electronically signed by: Shena Grimes on Reading Physician:06/25/2023 01:40 PM
== END ==
PROVIDERS: PCP Family Medicine; Referring Provider Internal Medicine Critical Care Medicine; Visit Provider Internal Medicine Critical Care Medicine
DX: J96.10 Chronic respiratory failure, unspecified whether with hypoxia or hypercapnia (principal)
CPT/HCPCS: 93306

== ENCOUNTER → 2023-06-30 12:55 | Outpatient (CLI) | payer MEDICARE, OTHER, SELFPAY ==
[2023-04-02 14:29] VITALS: BMI 35.6
== END ==
PROVIDERS: PCP Family Medicine; Visit Provider Urology
DX: N20.0 Calculus of kidney (principal); Z96.0 Presence of urogenital implants
CPT/HCPCS: 52310; 87086

== ENCOUNTER → 2023-07-19 14:52 | Outpatient (CLI) | payer MEDICARE, OTHER, SELFPAY ==
[2023-04-02 14:29] VITALS: BMI 35.6
== END ==
PROVIDERS: PCP Family Medicine; Referring Provider Internal Medicine Critical Care Medicine; Visit Provider Internal Medicine Critical Care Medicine
DX: J96.11 Chronic respiratory failure with hypoxia (principal); F17.210 Nicotine dependence, cigarettes, uncomplicated; J98.8 Other specified respiratory disorders
CPT/HCPCS: 94060; 94726; 94729

== ENCOUNTER → 2023-07-27 12:35 | Outpatient (CLI) | payer MEDICARE, OTHER, SELFPAY ==
[2023-04-02 14:29] VITALS: BMI 35.6
[2023-07-27 13:09] LABS: Add Manual Diff / Slide Review NO; Basophils Absolute Auto 0 /uL (0-100); Basophils Percent Auto 0.7 % (0-2); Eosinophils Absolute Auto 400 /uL (0-450); Eosinophils Percent Auto 6.8 % (2-4); Hematocrit 38.5 % (36-46); Hemoglobin 12.7 g/dL (12.0-16.0); Lymphocytes Absolute Auto 2600 /uL (1100-4500); Lymphocytes Percent Auto 40.3 % (25-40); Mean Corpuscular Hemoglobin 31.1 PG (26-34); Mean Corpuscular Volume 94.2 fL (80-100); Monocytes Absolute Auto 600 /uL (0-900); Monocytes Percent Auto 8.7 % (3-14); Neutrophils Absolute Auto 2800 /uL (1500-7000); Neutrophils Percent Auto 43.5 % (50-75); Platelet Count 247 X10^3/uL (150-400); Red Blood Cell Count 4.08 X10^6/uL (4.0-5.2); Red Cell Distribution Width 13.6 % (11.6-14.8); White Blood Cell Count 6.5 X10^3/uL (4.5-11.0)
[2023-07-27 13:37] LABS: Hemoglobin A1C% w Est Avg Glu 4.4 % (4.0-6.0)
[2023-07-27 14:04] LABS: Alanine Aminotransferase 21 IU/L (<35); Albumin 4.1 g/dL (3.5-5.0); Albumin Globulin Ratio 1.5 (1.0-2.8); Alkaline Phosphatase 62 U/L (38-126); Aspartate Aminotransferase 28 IU/L (14-36); Bilirubin Total 0.4 mg/dL (0.2-1.3); Blood Urea Nitrogen 11 mg/dL (7-17); Calcium 8.9 mg/dL (8.4-10.2); Carbon Dioxide 32 mmol/L (22-32); Chloride 101 mmol/L (98-107); Cholesterol 154 mg/dL (140-199); Estimated Glomerular Filt Rate > 60 mL/min (>60); Globulin 2.7 g/dL (1.7-4.1); Glucose 116 mg/dL (80-110); HDL Cholesterol 50 mg/dL (40-60); HEMOLYSIS 25 (0-50); LDL Cholesterol Calculated 80 mg/dL (<100); Potassium 4.5 mmol/L (3.4-5.1); Sodium 137 mmol/L (137-145); Total Protein 6.8 g/dL (6.3-8.2); Triglycerides 121 mg/dL (35-150)
[2023-07-27 14:08] LABS: High Sensitivity CRP - Cardiac 3.2 mg/L (1.0-3.0)
== END ==
PROVIDERS: PCP Family Medicine; Referring Provider Family Medicine; Visit Provider Family Medicine
DX: M54.12 Radiculopathy, cervical region (principal); E03.9 Hypothyroidism, unspecified; I10 Essential (primary) hypertension; E78.2 Mixed hyperlipidemia
CPT/HCPCS: 36415; 80053; 80061; 83036; 85025; 86140

== ENCOUNTER → 2023-10-26 14:27 | Outpatient (CLI) | payer MEDICARE, OTHER, SELFPAY ==
[2023-04-02 14:29] VITALS: BMI 35.6
--- NOTE | 2023-10-26 | DI.MG.S_ITS ---
BILATERAL DIGITAL SCREENING MAMMOGRAM 3D/2D WITH CAD WITH AUGMENTATION: 10/26/2023 CLINICAL: Routine screening. Comparison is made to exams dated: 05/01/2022 mammogram - , 07/23/2020 mammogram - [facility], 07/19/2017 mammogram, and 10/23/2015 mammogram - . There are scattered areas of fibroglandular density in both breasts (category b / 25%-50% glandular tissue). Current study was also evaluated with a Computer Aided Detection (CAD) system. Bilateral breast implants are stable. No significant masses, calcifications, or other findings are seen in either breast. There has been no significant interval change. IMPRESSION: NEGATIVE There is no mammographic evidence of malignancy. A 1 year screening mammogram is recommended. Based on the Tyrer Cuzick model (a risk assessment model) the patient's lifetime risk is 7.2% and her 10 year risk is 3.5%. According to the ACR, ACS, and NCCN guidelines, an annual breast MRI exam along with mammogram is recommended if the patient's lifetime risk is 20% or greater. This exam was interpreted at Station ID: [id number]. NOTE: For mammograms, a report in lay terms will be sent to the patient. Approximately 15% of breast malignancies will not be visualized mammographically. In the management of a palpable breast mass, a negative mammogram must not discourage biopsy of a clinically suspicious lesion. Electronically Signed By: Ed [email or web address]/rica:10/27/2023 12:26:45 letter sent: Normal Exam ACR BI-RADS Category 1: Negative [id number]
== END ==
PROVIDERS: PCP Family Medicine; Referring Provider Family Medicine; Visit Provider Family Medicine
DX: Z12.31 Encounter for screening mammogram for malignant neoplasm of breast (principal); R92.323 Mammographic fibroglandular density, bilateral breasts
CPT/HCPCS: 77063; 77067

== ENCOUNTER → 2024-06-30 14:16 | Outpatient (CLI) | payer MEDICARE, OTHER, SELFPAY ==
[2023-04-02 14:29] VITALS: BMI 35.6
--- NOTE | 2024-06-30 14:18 | DI.CT.S_ITS ---
PROCEDURE: CT CHEST WO CON INDICATIONS: Pulmonary nodules, mild ILD, eval for change TECHNIQUE: Noncontrast 2.0-2.5 mm thick sections acquired from the pulmonary apices to the posterior costophrenic angles. 7 mm thick axial MIP and 5 mm coronal and sagittal reformats were then acquired. For radiation dose reduction, the following was used: automated exposure control, adjustment of mA and/or kV according to patient size. COMPARISON: [facility], CT, CT ANGIO CHEST PE PROTOCOL, 06/07/2023, 10:36. FINDINGS: Image quality: Excellent Lungs: Mild peripheral reticulation, raising concern for early pulmonary fibrosis. No pleural effusion or pneumothorax. No pulmonary edema or focal consolidation. No suspicious pulmonary nodule. Mediastinal/soft tissue findings: Minimal calcification of the thoracic aorta. No thoracic aortic aneurysm. Heart is normal in size. No pericardial effusion. No significant coronary artery calcification. No mediastinal, hilar, or axillary lymphadenopathy. Bilateral breast implant. Visualized upper abdomen: Status post cholecystectomy. Dilatation of the common bile duct, likely secondary to post cholecystectomy fact. Status post gastric band procedure. Bones: No suspicious lytic or blastic lesion. 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 IMPRESSION: Mild peripheral reticulation of the lungs, raising concern for early pulmonary fibrosis, new from prior exam. No suspicious pulmonary nodule. Dictated by: Katerin Lay M.D. on 06/30/2024 at 16:39 Approved by: Katerin Lay M.D. on 06/30/2024 at 16:49 PATIENT NAME: KAREN MARIATonya : 1960 EXAM DATE: 06/30/2024 14:[address] SLIM SIMS M.D. CC: MODALITY: CT PATIENT TYPE: Out CONTRAST MEDIA: STATION ID: [id number] FLUORO TIME: PATIENT NAME: KAREN MARIATonya : 1960 EXAM DATE: 06/30/2024 14:[address] SLIM SIMS M.D. CC: MODALITY: CT PATIENT TYPE: Out CONTRAST MEDIA: STATION ID: [id number] FLUORO TIME:
== END ==
PROVIDERS: PCP Family Medicine; Referring Provider Internal Medicine Critical Care Medicine; Visit Provider Internal Medicine Critical Care Medicine
DX: R91.8 Other nonspecific abnormal finding of lung field (principal); M51.34 Other intervertebral disc degeneration, thoracic region; Z90.49 Acquired absence of other specified parts of digestive tract; Z98.84 Bariatric surgery status; Z98.82 Breast implant status
CPT/HCPCS: 71250

== ENCOUNTER → 2024-10-14 09:02 | Outpatient (CLI) | payer MEDICARE, OTHER, SELFPAY ==
[2023-04-02 14:29] VITALS: BMI 35.6
[2024-10-14 10:09] LABS: Hemoglobin 14.8 g/dL (12.0-16.0); Mean Corpuscular HGB Conc 33.6 % (30-36); Mean Corpuscular Volume 89.3 fL (80-100); Platelet Count 218 X10^3/uL (150-400); Red Blood Cell Count 4.92 X10^6/uL (4.0-5.2); White Blood Cell Count 7.9 X10^3/uL (4.5-11.0)
[2024-10-14 10:19] LABS: D Dimer 790 ng/ml (<500)
[2024-10-14 10:20] LABS: Hemoglobin A1C% w Est Avg Glu 6.4 % (4.0-6.0)
[2024-10-14 10:23] LABS: Alanine Aminotransferase 20 IU/L (<35); Albumin 4.1 g/dL (3.5-5.0); Alkaline Phosphatase 81 U/L (38-126); Aspartate Aminotransferase 23 IU/L (14-36); BUN Creatinine Ratio 15.5 (6-22); Bilirubin Total 0.6 mg/dL (0.2-1.3); Blood Urea Nitrogen 9 mg/dL (7-17); Carbon Dioxide 31 mmol/L (22-32); Chloride 102 mmol/L (98-107); Cholesterol 144 mg/dL (140-199); Estimated Glomerular Filt Rate > 60 mL/min (>60); Globulin 2.1 g/dL (1.7-4.1); Glucose 143 mg/dL (80-110); HDL Cholesterol 51 mg/dL (40-60); HEMOLYSIS < 15 (0-50); LDL Cholesterol Calculated 66 mg/dL (<100); Potassium 4.7 mmol/L (3.4-5.1); Sodium 137 mmol/L (137-145); Total Protein 6.2 g/dL (6.3-8.2); Triglycerides 134 mg/dL (35-150)
[2024-10-14 10:55] LABS: TSH w/ Reflex to FT4 2.81 uIU/mL (0.47-4.68)
[2024-10-15 08:11] LABS: CRP, High Sensitivity 7.39 mg/L (0.00-3.00)
== END ==
PROVIDERS: PCP Family Medicine; Referring Provider Family Medicine; Visit Provider Family Medicine
DX: R00.0 Tachycardia, unspecified (principal); R79.89 Other specified abnormal findings of blood chemistry; I83.92 Asymptomatic varicose veins of left lower extremity; M79.7 Fibromyalgia; E03.9 Hypothyroidism, unspecified; E78.2 Mixed hyperlipidemia; R73.03 Prediabetes
CPT/HCPCS: 36415; 80053; 80061; 83036; 84443; 85027; 85379; 86140